=== PATIENT | male | born 1940 | race Caucasian/White ===

== ENCOUNTER 2017-10-18 09:10 | Observation (INO) ==
[2017-10-18 09:37] LABS: Basophils % 0.2 %; Eosinophils # 0.1 K/mcL (0.0-0.6); Eosinophils % 0.9 %; Hematocrit 34.6 % (37.5-50.1); Hemoglobin 10.8 g/dL (12.9-16.9); Immature Granulocytes % 0.4 % (0-4); Mean Corpuscular HGB Conc 31.2 g/dL (31.6-35.5); Mean Corpuscular Hemoglobin 23.4 pg (28.0-33.3); Mean Corpuscular Volume 75.1 fL (83.0-100.0); Mean Platelet Volume 8.4 fL (9.4-12.4); Monocytes # 0.8 K/mcL (0.0-1.3); Monocytes % 6.4 %; Neutrophils # 10.1 K/mcL (1.6-8.9); Platelet Count 299 K/mcL (140-400); Red Blood Count 4.61 M/mcL (4.19-5.50); Red Cell Distribution Width 16.9 % (11.5-14.5); Segmented Neutrophils % 84.1 %
[2017-10-18 09:42] LABS: Prothrombin Time 11.8 Seconds (9.4-12.1)
[2017-10-18 09:57] LABS: % Iron Saturation 5 % (20-55); Alanine Aminotransferase 14 Units/L (7-52); Albumin 3.4 g/dL (3.5-5.7); Alkaline Phosphatase 98 Units/L (34-104); Aspartate Amino Transferase 13 Units/L (13-39); BUN/Creatinine Ratio 13 (6-26); Bilirubin,Total 0.4 mg/dL (0.3-1.0); Blood Urea Nitrogen 16 mg/dL (8-23); Calcium 9.3 mg/dL (8.6-10.3); Carbon Dioxide 25 mEq/L (23-29); Chloride 97 mEq/L (98-107); Globulin 3.4 g/dL (2.4-3.5); Glucose 113 mg/dL (70-105); Iron 12 mcg/dL (65-175); Osmolality,Calculated 276 (280-300); Potassium 4.2 mEq/L (3.5-5.1); Sodium 132 mEq/L (136-145); Total Protein 6.8 g/dL (6.4-8.9); Transferrin 174 mg/dL (203-362); eGFR For Non-African Americans 58 (> 60)
[2017-10-18 10:14] LABS: Ferritin 102 ng/mL (20-250)
[2017-10-18 10:19] LABS: Folate 12.1 ng/mL (3.0-16.0)
[2017-10-18] MEDS ORDERED: *HR* FentaNYL (PF) 100 MCG/2 ML VIAL IVP ONE (10:31)
[2017-10-18] MEDS ORDERED: *HR* Midazolam HCl 2 MG/2 ML VIAL IVP ONE (10:31)
[2017-10-18] MEDS ORDERED: cefOXitin 1,000 MG in Water for inj. (sterile) 20 ML 10 ML IVP ONE (10:32)
--- NOTE | 2017-10-18 10:33 | History & Physical Report ---
Date of Encounter: 10/18/17 Time of Encounter: 10:33 24 Hour HP Update - Instructions Instructions: If the History and Physical is less than 30 days old and was completed prior to A.M. admission and or procedure and has NOT been updated on calendar day of procedure please complete this update prior to performing procedure. - Update Patient reports changes in Medical Condition: No Changes in examination, assessment, or condition: No Changes in Medication: No Preop tests/diagnostics Reviewed: Yes Surgery Remains Indicated: Yes Consent for Planned Operative Procedure(s) Verified: Yes - Pre-Operative Checklist Preoperative Checklist Indicated: Yes Prophylactic Antibiotic Ordered: Yes Home Medications Include Beta Austen: No Beta Austen Taken Today (Day of Surgery): No Beta Austen Taken Yesterday (Day Prior to Surgery): No Is VTE Prophylaxis Indicated?: NO
[2017-10-18] MEDS ORDERED: 0.9 % Sodium Chloride 500 ML ONE ×2 (10:40→11:03)
[2017-10-18] MEDS ORDERED: Ondansetron 4 MG/2 ML VIAL IVP ONE (10:54)
--- NOTE | 2017-10-18 11:45 | Pre-Sedation Evaluation ---
Pre-sedation evaluation - Pre-sedation checklist Date of procedure: 10/18/17 Procedure: G-Tube Recent Vitals: Last Vital Signs Temp 97.9 F 10/18/17 10:14 Pulse 66 10/18/17 11:39 Resp 17 10/18/17 11:39 BP 149/64 10/18/17 11:39 Pulse Ox 100 10/18/17 11:39 H&P (including ROS) documented in medical record: Yes Previous reaction to sedatives/anesthetics: No Dietary Status: NPO after Midnight Airway Assessment: Patient can open mouth completely, TMJ function normal Dentition: No loose teeth or bridges Possible difficult airway: No ASA Classification *see protocol: CLASS II-Mild systemic disease Plan of Care: Pt appropriate candidate for procedure/moderate/conscious sedation , Risks/benefits of procedure/sedation discussed w/ patient/family Cardiac Registry (Cardio Only) - Functional Capacity - Clincal Frailty Scale
--- NOTE | 2017-10-18 11:47 | IR Procedure Note ---
Date of procedure: 10/18/17 Consent Obtained: Verbal consent, Written consent Timeout: Correct patient and procedure verified, Correct site verified, Time out performed, Skin prep completed Local anesthetic: Lidocaine 1% Indications: Head and neck cancer Procedure Performed: Gastrostomy tube placement Was there an parking assistant present: No Site/Technique: Percutaneous gastrostomy tube placement Results/Findings: 18 Fr G- Tube placed Estimated blood loss (cc): 2 Complications: other (Back wall of stomach was punctured. This was recognized immediately and the tube was repositioned. Plan for patient to be admitted for oberservation and abx. NPO now.) Post Procedure Treatment Plan: Admitted for observation. NPO Specimen: None
[2017-10-18] MEDS ORDERED: Piperacillin/Tazobactam 3.375 GM in 0.9 % Sodium Chloride Mini Bag 100 ML IVPB ONE (11:50)
--- NOTE | 2017-10-18 13:42 | Internal Med History&Physical ---
Date of Encounter: 10/18/17 Time of Encounter: 13:40 Internal Medicine - H&P: HPI Chief complaint: s/p peg placement with puncture of posterior abdomen Admitted From: Home Plans for Post Hospital Care: Home History of present illness: Mr. 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 curretly he reports no complaints other than pain at the incision site. denies fever, chills, chest pain, palpitations, sob, N/v/D. 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 during placement "(Back wall of stomach was punctured. This was recognized immediately and the tube was repositioned." he was transferred to [facility] for observation and IV ABx. Past Med Surg Social Fam HX - Past Medical History Medical history: arthritis, hyperlipidemia Additional medical history: kidney disease, ED, hyperkalemia, gastritis, CAD, Psychiatric history: no psych history - Past Surgical History Surgical History: coronary bypass (CABG) - Social History Smoking Status: Current every day smoker Smokeless Tobacco Status: No Alcohol use: none Drug use: none Internal Medicine - H&P: Meds Alendronate Sodium [Fosamax] 35 mg PO QWEEK 09/12/17 [History] DiphenhydraMINE [Benadryl] 25 mg PO DAILY PRN 09/12/17 [History] FLUoxetine HCl [Fluoxetine HCl] 40 mg PO DAILY 09/12/17 [History] traZODone [TraZODone] 50 mg PO HS 09/12/17 [History] Aspirin [Ecotrin] 0.5 tab PO DAILY 10/04/17 [History] Atorvastatin [Lipitor] 40 mg PO DAILY 10/04/17 [History] Omeprazole [PriLOSEC] 40 mg PO DAILY 10/04/17 [History] Oxycodone HCl 5 tab PO Q4H PRN 10/04/17 [History] Morphine Sulfate [Arymo ER] 15 mg PO Q12H 10/11/17 [History] Polyethylene Glycol 3350 [MiraLAX] 17 gm PO DAILY 10/11/17 [History] Oxycodone HCl 10 mg PO Q4H PRN 10/18/17 [History] 3 Allergy/AdvReac Type Severity Reaction Status Date / Time No Known Allergies Allergy Verified 11/03/14 10:43 All Systems PM: A 10-system review of systems was performed and is negative for pertinent findings except as documented above in the HPI. - Constitutional Vitals: Temp Pulse Resp BP Pulse Ox 97.9 F 66 17 149/64 100 10/18/17 10:14 10/18/17 11:39 10/18/17 11:39 10/18/17 11:39 10/18/17 11:39 - Other Additional findings: General: Patient is alert, oriented, no acute distress, cachectic Head: atraumatic, normocephalic, Eye: normal appearance, PERRL, no scleral icterus, no conjunctival injection ENT: Dry mucus membranes, poor dentition, unable to evaluate the oral cavity patietn has difficulty opening his jaw due to carcinoma. Neck: normal inspection, trachea midline, full ROM, no carotid bruits Chest: normal inspection, symmetric chest rise Respiratory: Good respiratory effort. Bilateral breath sounds are clear without wheezing, crackles, or rhonchi. Cardiovascular: Regular rate and rhythm. No clicks, rubs, gallops, or murmors. Normal heart sounds. Abdomen: Bowel sounds present normoactive x-4 quadrants. Abdomen is soft, nondistended. none tender, Peg tube site has clean bandage without evidence of bleeding Musculoskeletal: Spontaneously moving all extremities. Skin: warm, dry, intact. Neuro: Alert and oriented x4. Sensation light touch intact. Cranial nerves II- 12 is intact. Not aphasic Psych: Patient's affect is normal Internal Med - H&P Results - Labs CBC & Chem 7: 10/18/17 09:20 10/18/17 09:19 Labs: Short CBC 10/18/17 Range/Units 09:20 WBC 12.0 H (4.3-11.1) K/mcL Hgb 10.8 L (12.9-16.9) g/dL Hct 34.6 L (37.5-50.1) % Plt Count 299 (140-400) K/mcL Neutrophils # 10.1 H (1.6-8.9) K/mcL BMP 10/18/17 09:19 Sodium 132 L Potassium 4.2 Chloride 97 L Carbon Dioxide 25 BUN 16 Creatinine 1.22 Glucose 113 H Calcium 9.3 Liver Function 10/18/17 Range/Units 09:19 Total Bilirubin 0.4 (0.3-1.0) mg/dL AST 13 (13-39) Units/L ALT 14 (7-52) Units/L Alkaline Phosphatase 98 (34-104) Units/L Albumin 3.4 L (3.5-5.7) g/dL - Assessment and plan (1) Status post insertion of percutaneous endoscopic gastrostomy (PEG) tube Current Visit: Yes Status: Acute Assessment and plan: s/p punctured of the posterior wall of stomach zosyn CBC, CMP in the AM blood cx, Lactic acid- if SIRS / fever >100.4 vitals as per protocol will consult IR - they are onboard serial abdominal exam if signs of peritonitis call surgery NPO will start him on IV hydration cardiac monitoring / pulse ox (2) Oropharyngeal dysphagia Current Visit: Yes Status: Acute Assessment and plan: keep Total NPO for now Nothing by PEG tube - until cleared by IR will continue IVF (3) Iron deficiency anemia Current Visit: Yes Status: Acute Assessment and plan: on oral iron will hold for now follow H/h type and screen consider IV iron Qualifiers: Iron deficiency anemia type: unspecified iron deficiency Qualified Code(s) : D50.9 - Iron deficiency anemia, unspecified (4) CKD (chronic kidney disease) stage 3, GFR 30-59 ml/min Current Visit: Yes Status: Acute Assessment and plan: stable will monitor BMP and electrolytes continue IVF (5) Cancer of soft palate Current Visit: No Status: Acute Assessment and plan: Stage II (cT3N0/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 following with oncologist Dr. Ponce on 15 mg of PO morphine BID at home along with oxycodone 10 mg Q4H will start him on IVP morphine 2 mg Q4H and 2 mg Q6H PRN for break through pain - with holding parameters contineous pulse ox (6) Cachectic Current Visit: Yes Status: Acute Assessment and plan: BMI 17.6 consider nutrition consult when not NPO (7) Current every day smoker Current Visit: Yes Status: Acute Assessment and plan: was counseled (8) DVT prophylaxis Current Visit: Yes Status: Acute Assessment and plan: heparin 5000 units Q8H SC - Time Spent With Patient Total time spent is greater than 50% in coordination of care (as documented) at patient's floor/unit and/or counseling patient:
[2017-10-18] MEDS: 0.9 % Sodium Chloride 1,000 ML IVC SCH ×2 (14:36→23:55)
[2017-10-18] MEDS: Piperacillin/Tazobactam 3.375 GM in 0.9 % Sodium Chloride Mini Bag 100 ML IVPB SCH ×2 (14:36→23:56)
[2017-10-18] MEDS: *HR* Heparin 5,000 UNIT/ML VIAL SQ SCH ×2 (14:37→23:00)
[2017-10-18] MEDS: *HR* Morphine 2 MG/ML SYRINGE IVP SCH ×4 (14:41→23:57)
--- NOTE | 2017-10-18 15:46 | IR Progress Note ---
Patient reports: no new complaints Date of IR Procedure: 10/18/17 Vital Signs: Vital Signs/O2 Sat, Most Current Temp Pulse Resp BP Pulse Ox 97.1 F L 54 16 159/69 92 10/18/17 13:43 10/18/17 13:43 10/18/17 13:43 10/18/17 13:43 10/18/17 13:43 Recent Labs: Lab Results 10/18/17 10/18/17 09:20 09:19 WBC 12.0 H RBC 4.61 Hgb 10.8 L Hct 34.6 L MCV 75.1 L MCH 23.4 L MCHC 31.2 L RDW 16.9 H Plt Count 299 MPV 8.4 L Neutrophils # 10.1 H Lymphocytes # 1.0 Monocytes # 0.8 Eosinophils # 0.1 Basophils # 0.0 Sodium 132 L Potassium 4.2 Chloride 97 L Carbon Dioxide 25 BUN 16 Creatinine 1.22 Est GFR ( Amer) > 60 Est GFR (Non-Af Amer) 58 L BUN/Creatinine Ratio 13 Glucose 113 H Calcium 9.3 Assessment and Plan 77 y/o male status post gastrostomy tube placement. Back wall of stomach punctured during procedure. However, G-Tube ended up appropriately positioned and will be ammenable to use. Patient admitted for observation due to incidental gastric puncture. 1. Patient doing well. Resting comfortably. Mild pain at insertion site, but otherwise appears well. Plan for NPO for 24 hrs, and then may have medications with ice chips for another 24 hrs. Plan for admission during this time. Tentative plan to see patient Saturday am with expectation of discharge that day. Discussed with the patient and his family who are agreeable with this plan. Bryn Ace MD
[2017-10-18] MEDS ORDERED: *HR* Morphine 2 MG/ML SYRINGE IVP PRN (15:55)
[2017-10-19 01:54] LABS: Basophils % 0.1 %; Eosinophils % 0.3 %; Hematocrit 30.3 % (37.5-50.1); Hemoglobin 9.4 g/dL (12.9-16.9); Immature Granulocytes % 0.3 % (0-4); Lymphocytes # 0.9 K/mcL (0.6-4.6); Lymphocytes % 8.5 %; Mean Corpuscular Hemoglobin 23.6 pg (28.0-33.3); Mean Corpuscular Volume 75.9 fL (83.0-100.0); Mean Platelet Volume 8.8 fL (9.4-12.4); Monocytes # 0.4 K/mcL (0.0-1.3); Neutrophils # 8.7 K/mcL (1.6-8.9); Platelet Count 259 K/mcL (140-400); Red Blood Count 3.99 M/mcL (4.19-5.50); Red Cell Distribution Width 16.7 % (11.5-14.5); Segmented Neutrophils % 86.8 %
[2017-10-19 02:19] LABS: BUN/Creatinine Ratio 14 (6-26); Blood Urea Nitrogen 16 mg/dL (8-23); Calcium 8.5 mg/dL (8.6-10.3); Carbon Dioxide 24 mEq/L (23-29); Chloride 100 mEq/L (98-107); Glucose 79 mg/dL (70-105); Osmolality,Calculated 278 (280-300); Potassium 4.8 mEq/L (3.5-5.1); Sodium 134 mEq/L (136-145); eGFR For Non-African Americans > 60 (> 60)
[2017-10-19] MEDS: *HR* Morphine 2 MG/ML SYRINGE IVP SCH ×6 (04:06→23:54)
[2017-10-19] MEDS: *HR* Heparin 5,000 UNIT/ML VIAL SQ SCH ×3 (06:37→20:02)
[2017-10-19] MEDS: Piperacillin/Tazobactam 3.375 GM in 0.9 % Sodium Chloride Mini Bag 100 ML IVPB SCH ×3 (08:11→23:53)
--- NOTE | 2017-10-19 13:10 | Internal Med Progress Note ---
Date of Encounter: 10/19/17 Time of Encounter: 13:07 - Assessment and plan (1) Status post insertion of percutaneous endoscopic gastrostomy (PEG) tube Current Visit: Yes Status: Acute Assessment and plan: s/p punctured of the posterior wall of stomach during PEG tube placement -No peritoneal signs; however will monitor -We will start ice chips with medications for 24 hours until 1300 on 10/20 -Continue Zosyn -Check CBC in a.m. 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 following with oncologist Dr. Ponce on 15 mg of PO morphine BID at home along with oxycodone 10 mg Q4H Continue IVP morphine 2 mg Q4H and 2 mg Q6H PRN for break through pain - with holding parameters contineous pulse ox (3) Oropharyngeal dysphagia Current Visit: Yes Status: Acute Assessment and plan: Patient can have ice chips with medications only Nothing by PEG tube - until cleared by IR Resume IV fluids D5 normal saline (4) Cachectic Current Visit: Yes Status: Acute Assessment and plan: BMI 17.6 Nutrition seen patient (5) Iron deficiency anemia Current Visit: Yes Status: Acute Assessment and plan: -oral iron will hold for now -follow H/h -type and screen -Stable Qualifiers: Iron deficiency anemia type: unspecified iron deficiency Qualified Code(s) : D50.9 - Iron deficiency anemia, unspecified (6) CKD (chronic kidney disease) stage 3, GFR 30-59 ml/min Current Visit: Yes Status: Acute Assessment and plan: stable will monitor BMP and electrolytes continue IVF Serum creatinine 1.13 today (7) DVT prophylaxis Current Visit: Yes Status: Acute Assessment and plan: heparin 5000 units Q8H SC (8) Current every day smoker Current Visit: Yes Status: Acute Assessment and plan: was counseled (9) Moderate protein-calorie malnutrition Current Visit: Yes Status: Acute Assessment and plan: Patient with a BMI of 17.6 and cachexia - Time Spent With Patient Total time spent is greater than 50% in coordination of care (as documented) at patient's floor/unit and/or counseling patient: 25 - 35 minutes - Subjective Interval history: Patient seen and examined at bedside. Patient had no overnight events. Patient has no complaints other than being thirsty. She denies any chest pain, shortness of breath, nausea, vomiting, diarrhea. Patient states he has some tenderness at the G-tube insertion site however otherwise has no abdominal pain. He has been afebrile. - Constitutional Vitals: Temp Pulse Resp BP Pulse Ox 98.1 F 58 16 150/72 97 10/19/17 11:21 10/19/17 11:21 10/19/17 11:21 10/19/17 11:21 10/19/17 11:21 Exam: Constitutional: No acute distress, Alert Psych: AAO x 3 HEENT: NCAT, EOMI Cardio: regular rate and rhythm, +s1s2, no murmurs/rubs/ronchi, Resp: clear to ascultation bilaterally, no wheezes/rales/ronchi Abd: soft, non tender/non distended, positive bowel sounds, no gaurding/reboud/ ridgitity; PEG tube in place with clean dressing over tube; no peritoneal signs on exam Extremities: no clubbing/cyanosis/edema appreciated Neuro: Patient with speech difficulties secondary to throat cancer Lymph: no cervical/supraclavicular adenopahty apprecitated Internal Medicine: Result - Labs CBC & Chem 7: 10/19/17 01:18 10/19/17 01:18 Labs: Short CBC 10/19/17 Range/Units 01:18 WBC 10.0 (4.3-11.1) K/mcL Hgb 9.4 L (12.9-16.9) g/dL Hct 30.3 L (37.5-50.1) % Plt Count 259 (140-400) K/mcL Neutrophils # 8.7 (1.6-8.9) K/mcL BMP 10/19/17 01:18 Sodium 134 L Potassium 4.8 Chloride 100 Carbon Dioxide 24 BUN 16 Creatinine 1.13 Glucose 79 Calcium 8.5 L - ABG Interpretation ABG results: PT/INR, D-dimer PT 11.8 Seconds (9.4-12.1) 10/18/17 09:21 - VTE Documentation of Mechanical Device: Intermittent pneumatic compression device Consult Discharge Plan - Plan Referrals: [facility] [Outside]
[2017-10-19] MEDS: D5% in 0.9% NACL 1,000 ML IVC SCH (13:41)
[2017-10-20] MEDS: D5% in 0.9% NACL 1,000 ML IVC SCH ×2 (02:35→14:39)
[2017-10-20] MEDS: *HR* Morphine 2 MG/ML SYRINGE IVP SCH ×7 (04:28→21:46)
[2017-10-20] MEDS: *HR* Heparin 5,000 UNIT/ML VIAL SQ SCH ×2 (05:59→13:04)
[2017-10-20 06:55] LABS: Basophils % 0.1 %; Eosinophils # 0.1 K/mcL (0.0-0.6); Eosinophils % 0.9 %; Hematocrit 30.3 % (37.5-50.1); Hemoglobin 9.5 g/dL (12.9-16.9); Immature Granulocytes % 0.3 % (0-4); Lymphocytes # 0.6 K/mcL (0.6-4.6); Lymphocytes % 6.3 %; Mean Corpuscular HGB Conc 31.4 g/dL (31.6-35.5); Mean Corpuscular Hemoglobin 23.8 pg (28.0-33.3); Mean Corpuscular Volume 75.8 fL (83.0-100.0); Mean Platelet Volume 8.7 fL (9.4-12.4); Monocytes # 0.6 K/mcL (0.0-1.3); Monocytes % 5.7 %; Neutrophils # 8.6 K/mcL (1.6-8.9); Platelet Count 289 K/mcL (140-400); Red Cell Distribution Width 16.9 % (11.5-14.5); Segmented Neutrophils % 86.7 %
[2017-10-20] MEDS: Piperacillin/Tazobactam 3.375 GM in 0.9 % Sodium Chloride Mini Bag 100 ML IVPB SCH ×2 (08:10→16:47)
--- NOTE | 2017-10-20 12:54 | Internal Med Progress Note ---
Date of Encounter: 10/20/17 Time of Encounter: 12:52 - Assessment and plan (1) Status post insertion of percutaneous endoscopic gastrostomy (PEG) tube Current Visit: Yes Status: Acute Assessment and plan: s/p punctured of the posterior wall of stomach during PEG tube placement -No peritoneal signs; however will monitor -Patient was nothing by mouth for 24 hours and has only had a ships with medications for the last 24 hours and tolerating well -We will start clear liquids -Continue Zosyn -Check CBC in a.m. 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 following with oncologist Dr. Ponce on 15 mg of PO morphine BID at home along with oxycodone 10 mg Q4H Continue IVP morphine 2 mg Q4H and 2 mg Q6H PRN for break through pain - with holding parameters contineous pulse ox (3) Oropharyngeal dysphagia Current Visit: Yes Status: Acute Assessment and plan: We will start clear liquids today Nothing by PEG tube - until cleared by IR Continue IV fluids D5 normal saline (4) Cachectic Current Visit: Yes Status: Acute (5) Iron deficiency anemia Current Visit: Yes Status: Acute Assessment and plan: -oral iron will hold for now -follow H/h -type and screen -Hemoglobin stable hemoglobin 9.5 today Qualifiers: Iron deficiency anemia type: unspecified iron deficiency Qualified Code(s) : D50.9 - Iron deficiency anemia, unspecified (6) CKD (chronic kidney disease) stage 3, GFR 30-59 ml/min Current Visit: Yes Status: Acute Assessment and plan: stable On D5 normal saline 75 mL per hour We will check BMP in a.m. (7) DVT prophylaxis Current Visit: Yes Status: Acute Assessment and plan: heparin 5000 units Q8H SC (8) Current every day smoker Current Visit: Yes Status: Acute (9) Moderate protein-calorie malnutrition Current Visit: Yes Status: Acute Assessment and plan: Patient with a BMI of 17.6 and cachexia - Time Spent With Patient Total time spent is greater than 50% in coordination of care (as documented) at patient's floor/unit and/or counseling patient: less than 15 minutes - Subjective Interval history: Patient seen and examined at bedside. Patient had no overnight events. Patient states he is doing well. Patient is tolerating ice chips with medications. She denies any abdominal pain at all and states that the PEG tube insertion site no longer hurts much. Patient has been afebrile. - Constitutional Vitals: Temp Pulse Resp BP Pulse Ox 97.6 F 20 16 164/70 100 10/20/17 11:05 10/20/17 11:05 10/20/17 11:05 10/20/17 11:05 10/20/17 11:05 Exam: Constitutional: No acute distress, Alert Psych: AAO x 3 HEENT: NCAT, EOMI Cardio: regular rate and rhythm, +s1s2 Resp: Occasional expiratory wheeze, no distress Abd: soft, non tender/non distended, positive bowel sounds, no gaurding/reboud/ ridgitity; PEG tube in place with clean dressing over tube; no peritoneal signs on exam Extremities: no clubbing/cyanosis/edema appreciated Neuro: Patient with speech difficulties secondary to throat cancer Internal Medicine: Result - Labs CBC & Chem 7: 10/20/17 05:49 10/19/17 01:18 Labs: Short CBC 10/20/17 Range/Units 05:49 WBC 9.9 (4.3-11.1) K/mcL Hgb 9.5 L (12.9-16.9) g/dL Hct 30.3 L (37.5-50.1) % Plt Count 289 (140-400) K/mcL Neutrophils # 8.6 (1.6-8.9) K/mcL - ABG Interpretation ABG results: PT/INR, D-dimer PT 11.8 Seconds (9.4-12.1) 10/18/17 09:21 - VTE Documentation of Mechanical Device: Intermittent pneumatic compression device Consult Discharge Plan - Plan Referrals: [facility] [Outside]
[2017-10-21] MEDS: *HR* Morphine 2 MG/ML SYRINGE IVP SCH ×4 (00:01→10:55)
[2017-10-21] MEDS: *HR* Heparin 5,000 UNIT/ML VIAL SQ SCH ×3 (00:01→15:22)
[2017-10-21 01:46] LABS: Basophils % 0.1 %; Eosinophils # 0.1 K/mcL (0.0-0.6); Eosinophils % 1.4 %; Hematocrit 31.7 % (37.5-50.1); Hemoglobin 9.6 g/dL (12.9-16.9); Immature Granulocytes % 0.7 % (0-4); Lymphocytes % 11.1 %; Mean Corpuscular HGB Conc 30.3 g/dL (31.6-35.5); Mean Platelet Volume 8.6 fL (9.4-12.4); Monocytes # 0.6 K/mcL (0.0-1.3); Monocytes % 6.5 %; Neutrophils # 7.2 K/mcL (1.6-8.9); Platelet Count 271 K/mcL (140-400); Red Blood Count 4.17 M/mcL (4.19-5.50); Segmented Neutrophils % 80.2 %
[2017-10-21 02:04] LABS: BUN/Creatinine Ratio 13 (6-26); Blood Urea Nitrogen 12 mg/dL (8-23); Calcium 8.9 mg/dL (8.6-10.3); Carbon Dioxide 26 mEq/L (23-29); Chloride 103 mEq/L (98-107); Glucose 120 mg/dL (70-105); Osmolality,Calculated 283 (280-300); Sodium 136 mEq/L (136-145); eGFR For Non-African Americans > 60 (> 60)
[2017-10-21] MEDS: D5% in 0.9% NACL 1,000 ML IVC SCH (03:50)
--- NOTE | 2017-10-21 08:38 | IR Progress Note ---
Patient reports: no new complaints Date of IR Procedure: 10/18/17 Vital Signs: Vital Signs/O2 Sat, Most Current Temp Pulse Resp BP Pulse Ox 98.4 F 51 16 180/76 100 10/21/17 07:07 10/21/17 07:07 10/21/17 07:07 10/21/17 07:07 10/21/17 07:07 Recent Labs: Lab Results 10/21/17 10/21/17 10/20/17 00:55 00:55 05:49 WBC 9.0 9.9 RBC 4.17 L 4.00 L Hgb 9.6 L 9.5 L Hct 31.7 L 30.3 L MCV 76.0 L 75.8 L MCH 23.0 L 23.8 L MCHC 30.3 L 31.4 L RDW 17.0 H 16.9 H Plt Count 271 289 MPV 8.6 L 8.7 L Neutrophils # 7.2 8.6 Lymphocytes # 1.0 0.6 Monocytes # 0.6 0.6 Eosinophils # 0.1 0.1 Basophils # 0.0 0.0 Sodium 136 Potassium 4.0 Chloride 103 Carbon Dioxide 26 BUN 12 Creatinine 0.94 Est GFR ( Amer) > 60 Est GFR (Non-Af Amer) > 60 BUN/Creatinine Ratio 13 Glucose 120 H Calcium 8.9 10/19/17 10/19/17 10/18/17 01:18 01:18 09:20 WBC 10.0 12.0 H RBC 3.99 L 4.61 Hgb 9.4 L 10.8 L Hct 30.3 L 34.6 L MCV 75.9 L 75.1 L MCH 23.6 L 23.4 L MCHC 31.0 L 31.2 L RDW 16.7 H 16.9 H Plt Count 259 299 MPV 8.8 L 8.4 L Neutrophils # 8.7 10.1 H Lymphocytes # 0.9 1.0 Monocytes # 0.4 0.8 Eosinophils # 0.0 0.1 Basophils # 0.0 0.0 Sodium 134 L Potassium 4.8 Chloride 100 Carbon Dioxide 24 BUN 16 Creatinine 1.13 Est GFR ( Amer) > 60 Est GFR (Non-Af Amer) > 60 BUN/Creatinine Ratio 14 Glucose 79 Calcium 8.5 L 10/18/17 09:19 WBC RBC Hgb Hct MCV MCH MCHC RDW Plt Count MPV Neutrophils # Lymphocytes # Monocytes # Eosinophils # Basophils # Sodium 132 L Potassium 4.2 Chloride 97 L Carbon Dioxide 25 BUN 16 Creatinine 1.22 Est GFR ( Amer) > 60 Est GFR (Non-Af Amer) 58 L BUN/Creatinine Ratio 13 Glucose 113 H Calcium 9.3 Assessment and Plan 77 y/o male status post gastrostomy tube placement due to head and neck cancer. Patient tolerated the procedure well, although the posterior wall of the stomach was punctured during the procedure. Therefore, the patient was admitted over the weekend for monitoring and abx. 1. Doing well. No complaints related to the gastrostomy tube. Denies abdominal pain. Will inject the G-tube this am with contrast. If no leak, will advance his diet and plan for discharge today.
[2017-10-21] MEDS: Piperacillin/Tazobactam 3.375 GM in 0.9 % Sodium Chloride Mini Bag 100 ML IVPB SCH ×2 (10:53)
[2017-10-21] MEDS ORDERED: *HR* OxyCODONE Immed Rel 5 MG TABLET PO PRN ×2 (13:23→14:02)
--- NOTE | 2017-10-21 14:31 | Discharge Summary ---
Date of Encounter: 10/21/17 Time of Encounter: 14:27 - Discharge Diagnosis (1) Status post insertion of percutaneous endoscopic gastrostomy (PEG) tube Priority: Primary Status: Acute Assessment and Plan: s/p punctured of the posterior wall of stomach during PEG tube placement -No peritoneal signs -Patient tolerated clear liquid diet -dc Zosyn -no leak on imaging -dc home if tolerating regular diet. (2) Cancer of soft palate Priority: Secondary Status: Acute (3) Oropharyngeal dysphagia Priority: Secondary Status: Acute (4) Cachectic Priority: Secondary Status: Acute (5) Iron deficiency anemia Priority: Secondary Status: Acute Qualifiers: Iron deficiency anemia type: unspecified iron deficiency Qualified Code(s) : D50.9 - Iron deficiency anemia, unspecified (6) CKD (chronic kidney disease) stage 3, GFR 30-59 ml/min Priority: Secondary Status: Acute (7) DVT prophylaxis Priority: Secondary Status: Acute (8) Current every day smoker Priority: Secondary Status: Acute (9) Moderate protein-calorie malnutrition Priority: Secondary Status: Acute Hospital course: Mr. Hardy is a 77 year old male who presented to interventional radiology for PEG tube placement secondary to dysphagia from throat cancer. Patient underwent PEG tube placement and had posterior wall puncture. Patient is on IV antibiotics and admitted to observation. Slowly advance the patient's diet over 2 days after being nothing by mouth for 24 hours and the patient is tolerating it well. I saw the patient and followed. Patient underwent fluoroscopy. The discharge and showed no leaks; this was followed up with a KUB which also revealed no leaks. Vision will be discharged home with instructions to return to the ED should he experience abdominal pain or not tolerating his normal diet. Patient will not be discharged on tube feeds and will hold for 1 week per Interventional radiology. Discharge discussed with: patient, nurse - Time Spent with Patient Total time spent providing and/or coordinating discharge services: Greater than 30 minutes - Discharge Medications Home Medications: Alendronate Sodium [Fosamax] 35 mg PO QWEEK 09/12/17 [History] DiphenhydraMINE [Benadryl] 25 mg PO DAILY PRN 09/12/17 [History] FLUoxetine HCl [Fluoxetine HCl] 40 mg PO DAILY 09/12/17 [History] traZODone [TraZODone] 50 mg PO HS 09/12/17 [History] Omeprazole [PriLOSEC] 40 mg PO DAILY 10/04/17 [History] Oxycodone HCl 5 tab PO Q4H PRN 10/04/17 [History] Morphine Sulfate [Arymo ER] 15 mg PO Q12H 10/11/17 [History] Polyethylene Glycol 3350 [MiraLAX] 17 gm PO DAILY 10/11/17 [History] Oxycodone HCl 10 mg PO Q4H PRN 10/18/17 [History] Allergies/Adverse Reactions: 3 Allergy/AdvReac Type Severity Reaction Status Date / Time No Known Allergies Allergy Verified 11/03/14 10:43 Date of admission: 10/18/17 13:47 [facility] care physician[facility] Consults: 10/18/17 14:00 Consult to Nutrition [CONS] Routine Comment: Throat cancer, COPD, recent loss of spouse Consulting Provider: NUTRITION Reason for Dietary Consult: MST Score Consult to Pastoral Services [CONS] Routine Comment: 10/18/17 15:42 Consult to Interventional Radiology [CONS] Routine Consulting Provider: Radiology Interventional Cols Reason for Consult: s/p PEG placement as OP with Puntured posterior abdominal wall, was referred from OP IR procedures By dr. morton who knows about the patient Call Completed: Yes - Constitutional Vitals: Temp Pulse Resp BP Pulse Ox 97.5 F L 46 14 178/72 98 10/21/17 11:00 10/21/17 11:00 10/21/17 11:00 10/21/17 11:00 10/21/17 11:00 Exam: Constitutional: No acute distress, Alert Psych: AAO x 3 HEENT: NCAT, EOMI Cardio: regular rate and rhythm, +s1s2 Resp: Occasional expiratory wheeze, no distress Abd: soft, non tender/non distended, positive bowel sounds, no gaurding/reboud/ ridgitity; PEG tube in place with clean dressing over tube; no peritoneal signs on exam; very benign exam Extremities: no clubbing/cyanosis/edema appreciated Neuro: Patient with speech difficulties secondary to throat cancer - Patient Status Disposition: Home, Self-Care Condition: Good Functional capacity at discharge: independent ambulation Overall status at discharge: patient is back to baseline - Discharge Instructions Follow Up With: [facility] [Outside] - Diet and Activity Activity: increase activity as tolerated Diet: advance to your usual diet, other (Advance her diet over the week as tolerated; do not start tube feeds for 1 week. ) - VTE Documentation of Mechanical Device: Intermittent pneumatic compression device
--- NOTE | 2017-10-21 14:43 | IR Progress Note ---
Patient reports: no new complaints Date of IR Procedure: 10/18/17 Vital Signs: Vital Signs/O2 Sat, Most Current Temp Pulse Resp BP Pulse Ox 97.5 F L 46 14 178/72 98 10/21/17 11:00 10/21/17 11:00 10/21/17 11:00 10/21/17 11:00 10/21/17 11:00 Recent Labs: Lab Results 10/21/17 10/21/17 10/20/17 00:55 00:55 05:49 WBC 9.0 9.9 RBC 4.17 L 4.00 L Hgb 9.6 L 9.5 L Hct 31.7 L 30.3 L MCV 76.0 L 75.8 L MCH 23.0 L 23.8 L MCHC 30.3 L 31.4 L RDW 17.0 H 16.9 H Plt Count 271 289 MPV 8.6 L 8.7 L Neutrophils # 7.2 8.6 Lymphocytes # 1.0 0.6 Monocytes # 0.6 0.6 Eosinophils # 0.1 0.1 Basophils # 0.0 0.0 Sodium 136 Potassium 4.0 Chloride 103 Carbon Dioxide 26 BUN 12 Creatinine 0.94 Est GFR ( Amer) > 60 Est GFR (Non-Af Amer) > 60 BUN/Creatinine Ratio 13 Glucose 120 H Calcium 8.9 10/19/17 10/19/17 01:18 01:18 WBC 10.0 RBC 3.99 L Hgb 9.4 L Hct 30.3 L MCV 75.9 L MCH 23.6 L MCHC 31.0 L RDW 16.7 H Plt Count 259 MPV 8.8 L Neutrophils # 8.7 Lymphocytes # 0.9 Monocytes # 0.4 Eosinophils # 0.0 Basophils # 0.0 Sodium 134 L Potassium 4.8 Chloride 100 Carbon Dioxide 24 BUN 16 Creatinine 1.13 Est GFR ( Amer) > 60 Est GFR (Non-Af Amer) > 60 BUN/Creatinine Ratio 14 Glucose 79 Calcium 8.5 L Assessment and Plan Patient reports he feels well with no abdominal pain. Resting comfortably. 1. D/w with the patient and his daughter that he is ok to be discharged. No signs of peritonitis. Patient did well over the weekend and tolerated clears this morning. No evidence of a gastric leak clinically or with today's imaging studies. 2. Recommended to the patient's daughter holding off tube feeds this week so as not to overload the stomach with liquids. Advance his diet this week as tolerated. I encouraged them to go the ER if the patient appears to be getting sick or is not tolerating his normal diet. Bryn Ace MD
[2017-10-21 15:41] VITALS: BP 156/74
--- NOTE | 2017-10-21 16:54 | Physician Discharge Referral ---
Home Health/Hosp Referral Info Transfer to: Home Health Provider in Charge Post Discharge: PCP (Needs nursing) - Diagnosis (1) Status post insertion of percutaneous endoscopic gastrostomy (PEG) tube Status: Acute (2) Cancer of soft palate Status: Acute (3) Oropharyngeal dysphagia Status: Acute (4) Cachectic Status: Acute (5) Iron deficiency anemia Status: Acute (6) CKD (chronic kidney disease) stage 3, GFR 30-59 ml/min Status: Acute (7) DVT prophylaxis Status: Acute (8) Current every day smoker Status: Acute (9) Moderate protein-calorie malnutrition Status: Acute - Respiratory Orders Smoking Cessation: Smoking cessation has been advised. For more information, call the [place] Tobacco Quit Line at 5-881-WPILNOW. - Transfer Medications Home Medications: Alendronate Sodium [Fosamax] 35 mg PO QWEEK 09/12/17 [History] DiphenhydraMINE [Benadryl] 25 mg PO DAILY PRN 09/12/17 [History] FLUoxetine HCl [Fluoxetine HCl] 40 mg PO DAILY 09/12/17 [History] traZODone [TraZODone] 50 mg PO HS 09/12/17 [History] Omeprazole [PriLOSEC] 40 mg PO DAILY 10/04/17 [History] Oxycodone HCl 5 tab PO Q4H PRN 10/04/17 [History] Morphine Sulfate [Arymo ER] 15 mg PO Q12H 10/11/17 [History] Polyethylene Glycol 3350 [MiraLAX] 17 gm PO DAILY 10/11/17 [History] Oxycodone HCl 10 mg PO Q4H PRN 10/18/17 [History] Allergies/Adverse Reactions: 3 Allergy/AdvReac Type Severity Reaction Status Date / Time No Known Allergies Allergy Verified 11/03/14 10:43 Certification: Further, I certify that my clinical findings support that this patient is homebound (i.e. absences from home require considerable and taxing effort and are for medical reasons or church services or infrequently or short duration when for other reasons) because: Homebound Reason: Patient requires assistance of a person or device to safely leave home Attestation: My signature below is to certify that this patient is under my care and that I, or nurse practitioner, or a physician's child center assistant working with me, has a face-to -face encounter with this patient.
--- NOTE | 2017-10-21 17:49 | Electrocardiograph Report ---
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
--- NOTE | 2017-10-21 17:49 | Electrocardiograph Report ---
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
[2017-10-21] MEDS ORDERED: *HR* Morphine Sulfate SR (12 HR) 15 MG TABLET.ER PO SCH (21:00)
[2017-10-21] MEDS ORDERED: traZODone 50 MG TABLET PO SCH (21:00)
[2017-10-22] MEDS ORDERED: FLUoxetine 20 MG CAPSULE PO SCH (09:00)
== END 2017-10-21 18:44 | disposition home or self-care (01) ==
LOC: LAB 09:10 → 3ANU 09:10
PROVIDERS: ADMIT Internal Medicine; ATTEND Internal Medicine
PROC: IRDRAIN (2017-10-21 12:30)

== ENCOUNTER 2018-01-22 16:50 | Inpatient (IN) ==
[2018-01-22] MEDS ORDERED: Albuterol 2.5 MG/3 ML NEBULIZER IH PRN (20:06)
[2018-01-22] MEDS ORDERED: Naloxone 0.4 MG/ML INJ IVP PRN (20:06)
[2018-01-22] MEDS ORDERED: Acetaminophen 325 MG TABLET PO PRN (20:06)
[2018-01-22] MEDS ORDERED: traMADol 50 MG TABLET PO PRN (20:06)
[2018-01-22] MEDS ORDERED: Isovue-370 500 ML INFUS..BTL IV ONE (20:06)
[2018-01-22 20:53] LABS: INR 1.1; Prothrombin Time 12.5 Seconds (9.4-12.1)
[2018-01-22 20:56] LABS: Activated Partial Thrombo Time 27.1 Seconds (26.0-36.0)
--- NOTE | 2018-01-22 21:03 | Internal Med History&Physical ---
Date of Encounter: 01/22/18 Time of Encounter: 19:40 Internal Medicine - H&P: HPI Chief complaint: weakness; short of breath; weight loss Admitted From: Hospital to Hospital Transfer Plans for Post Hospital Care: Home History of present illness: Mr. Hardy is a 78 year old male who presents to the hospital today in transfer from [facility] ER for concerns of dyspnea, profound weakness, cough, and weight loss. He has been treated for head and neck cancer with localized radiation. His last treatment was on 11/27/2017. He has been unable to eat or drink much by mouth due to dysphagia, productive cough, and shortness of breath. He does have a feeding tube in place, which he uses for tube feeds. Despite the tube feeding, he is continuing to lose weight. Workup in [place] included imaging, routine labs, and an elevated d-dimer of over 5000. CT angiogram of the chest was not performed. Of note, patient denies any chest pain, pleurisy, palpitations, tachycardia, or syncope. I anticipate a d- dimer elevation is due to likely underlying COPD/possible pneumonia. However, given the marked elevation of d-dimer and his underlying malignancy, I am quite concerned about a pulmonary embolus. I am going to order a STAT CT angiogram of the chest to rule out PE. I discussed this with patient and 2 daughters present and they are agreeable. I also discussed CODE STATUS with patient directly and his 2 daughters who are both next of kin. 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 He does not wish to have prolonged intubation, resuscitation, or long-term heroic measures. However, in the event of an acute respiratory distress/failure or cardiac arrest, he does wish to be resuscitated and wishes to have short-term intubation. Therefore, he will remain FULL CODE for now. I discussed this in detail with patient and family, and they are all agreeable and request full code as above. Past Med Surg Social Fam HX - Past Medical History Attestation: Yes The following information was validated with the patient. Source: patient, old records reviewed, obtained from family Medical history: arthritis, hyperlipidemia Additional medical history: kidney disease, ED, hyperkalemia, gastritis, CAD, Psychiatric history: no psych history - Past Surgical History Surgical History: coronary bypass (CABG) - Social History Smoking Status: Current every day smoker Smokeless Tobacco Status: No Alcohol use: none Drug use: none Current living situation: Home, With Family Activity Level: Independent ambulation Recent Out of Country Travel Within the Last 8 Weeks: No - Family History Mother History Unknown: Yes Living Status: Father History Unknown: Yes Living Status: - Additional Family History Additional family history: No known FH of DVT/PE; both daughters alive and well. Internal Medicine - H&P: Meds FLUoxetine HCl [Fluoxetine HCl] 40 mg PO DAILY 09/12/17 [History] traZODone [TraZODone] 150 mg PO HS 09/12/17 [History] Omeprazole [PriLOSEC] 40 mg PO DAILY #30 capsule. 12/05/17 [Rx] Gabapentin [Neurontin] 100 mg PO TID 30 Days #90 capsule 01/16/18 [Rx] Albuterol Sulfate [Proair Hfa] 2 puff IH Q4H PRN 01/22/18 [History] Alendronate Sodium [Fosamax] 70 mg PO QWEEK 01/22/18 [History] Atorvastatin [Lipitor] 40 mg PO HS 01/22/18 [History] Budesonide/Formoterol 160/4.5 [Symbicort 160/4.5] 2 puff IH BIDR 01/22/18 [History] Docusate Sodium [Dok] 100 mg PO BID 01/22/18 [History] Ranitidine HCl [Zantac] 300 mg PO DAILY 01/22/18 [History] Allergy/AdvReac Type Severity Reaction Status Date / Time No Known Allergies Allergy Verified 01/22/18 14:07 - Constitutional Constitutional: anorexia, fatigue, weakness, weight loss, no chills, no fever(s), no night sweats - EENT Eyes: no blurry vision, no change in vision Ears: no ear pain, no tinnitus Nose, mouth and throat: dry mouth, dysphagia, hoarseness, mouth pain, no nasal congestion, no sinus pain, no sinus pressure - Cardiovascular Cardiovascular ROS IM: dyspnea, dyspnea on exertion, no chest pain, no edema, no irregular heart rhythm, no palpitations, no syncope - Respiratory Respiratory: cough, dyspnea, chest congestion, excessive phlegm production, change in phlegm color, no hemoptysis, no pain on inspiration, no pain with cough - Gastrointestinal Gastrointestinal: dysphagia, no abdominal pain, no diarrhea, no hematemesis, no hematochezia, no melena, no nausea, no vomiting - Genitourinary Genitourinary ROS male: no dysuria, no flank pain, no hematuria - Musculoskeletal Musculoskeletal ROS IM: no arthralgias, no back pain - Integumentary Integumentary IM: no rash, no jaundice - Neurological Neurological ROS: no dizziness, no focal weakness, no frequent falls, no headache(s) - Psychiatric Psychiatric: no anxiety, no depression - Endocrine Endocrine IM: no polydipsia, no polyphagia, no polyuria - Allergic/Immunologic Allergic/Immunologic: no GI upset with certain foods - Constitutional Vitals: Temp Pulse Resp BP Pulse Ox 97.8 F 59 15 153/73 96 01/22/18 19:30 01/22/18 19:30 01/22/18 19:30 01/22/18 19:30 01/22/18 19:30 General appearance: Present: cooperative, A&O X 3, pleasant, no acute distress, loss of weight, answers questions appropriately Exam: weak, frail, muffled voice (chronic -- not new); no acute distress but with + productive cough. - Head Head exam: Present: normal inspection - Eye Eye exam: Present: EOMI, PERRL. Absent: scleral icterus Pupils: Present: normal accommodation - ENT ENT exam: Present: mucous membranes dry Additional comments: limited oropharygeal view due to limited oral opening from XRT; no obvious airway obstruction but soft palate and tonsillar pillars appear full - Neck Neck exam general surgery: Present: tenderness (left anterior cerivcal neck area). Absent: thyromegaly - Respiratory Respiratory exam: Present: prolonged expiratory phase, rales (few scattered), rhonchi. Absent: chest wall tenderness, CTAB, respiratory distress, wheezes - Cardiovascular Cardiovascular exam: Present: RRR, +S1, +S2. Absent: diastolic murmur, systolic murmur - GI/Abdominal GI/Abdominal exam: Present: soft. Absent: guarding, hepatomegaly, mass, rebound, splenomegaly, tenderness Additional comments: scaphoid - Extremities Exam Extremities exam: Present: full ROM, normal capillary refill, warm, radial pulses palpable and symmetrical. Absent: calf tenderness, joint swelling, pedal edema, tenderness Additional comments: muscle atrophy noted - Back Exam Back exam: Present: normal inspection. Absent: CVA tenderness (L), CVA tenderness (R) - Neurological Exam Neurological exam: Present: alert, CN II-XII intact, oriented X3, no focal deficits Additional comments: muffled voice -- chronic since cancer diagnosis - Psychiatric Psychiatric exam: Present: normal affect, normal mood - Skin Skin exam: Present: dry, intact, warm Internal Med - H&P Results - Labs Labs: Cardiac Enzymes 01/22/18 Range/Units 20:26 Troponin I < 0.03 (< 0.04) ng/mL I reviewed labs from [place] and they include the following: WBC 12.4 Hemoglobin 9.9 Hematocrit 30.9 Platelets 223 PT 12.5 INR 1.1 PTT 27.1 D-dimer 5459 Sodium 130 Potassium 4.5 Chloride 100 Carbon dioxide 26 BUN 34 Creatinine 0.94 Glucose 98 Troponin < 0.03 - Diagnostic Studies Chest x-ray Status: image reviewed by me (negative) - Assessment and plan (1) Dyspnea Current Visit: Yes Status: Acute Assessment and plan: 1. Given D-Dimer > 5000 and H&N cancer, I am ordering a STAT CTA chest to rule out PE. 2. Will order EKG and serial troponins to rule out angina -- low suspicion. 3. Will treat for COPD and suspected pneumonia as detailed below. Qualifiers: Dyspnea type: shortness of breath Qualified Code(s): R06.02 - Shortness of breath; R06.00 - Dyspnea, unspecified; R06.01 - Orthopnea (2) Pneumonia Current Visit: Yes Status: Suspected Assessment and plan: 1. CXR negative, but I suspect pneumonia on clinical grounds. 2. Will order blood and sputum cultures and start treatment with Levaquin. 3. Will provide aerosols PRN and oxygen as needed for support. 4. Not actively wheezing; thus will hold off on steroids for now and monitor clinically. Qualifiers: Pneumonia type: due to unspecified organism Laterality: unspecified laterality Lung location: unspecified part of lung Qualified Code(s): J18.9 - Pneumonia, unspecified organism (3) Cancer of soft palate Current Visit: Yes Status: Chronic Assessment and plan: 1. Consult Oncology and speech therapy given worsening dsyphagia. 2. Patient finished XRT 11/27/17; has not had any surgery or chemotherapy. 3. Further work-up/staging per oncology. (4) Oropharyngeal dysphagia Current Visit: No Status: Acute Assessment and plan: 1. Will make patient npo and give meds/feeds per PEG tube only. 2. Consult speech for swallowing assessment diet recommendations. 3. Will likely need nutrition consult as well given weight loss and FTT. (5) DVT prophylaxis Current Visit: Yes Status: Acute Assessment and plan: 1. Heparin SQ for now; patient may need full anti-coagulation pending CTA chest.
[2018-01-22] MEDS: traMADol 50 MG TABLET GTUBE PRN (22:24)
[2018-01-22] MEDS: Docusate Oral Soln 100 MG/10 ML UDC GTUBE SCH (22:24)
[2018-01-22] MEDS: Gabapentin 100 MG CAPSULE GTUBE SCH (22:24)
[2018-01-22] MEDS: Levofloxacin 750 MG/150 ML 750 MG/150 ML BAG IVPB SCH (22:25)
[2018-01-22] MEDS: traZODone 50 MG TABLET GTUBE SCH (22:25)
[2018-01-22] MEDS: 0.9 % Sodium Chloride 1,000 ML IVC SCH (22:26)
[2018-01-23] MEDS: Budesonide/Formoterol 160/4.5 1 PUFF INH IH SCH ×3 (00:17→23:54)
[2018-01-23] MEDS: Ipratropium/Albuterol Neb 3 ML IH SCH ×7 (00:34→23:54)
[2018-01-23 02:01] LABS: Basophils % 0.1 %; Eosinophils % 0.2 %; Hematocrit 30.5 % (37.5-50.1); Hemoglobin 9.6 g/dL (12.9-16.9); Immature Granulocytes % 0.5 % (0-4); Lymphocytes # 0.6 K/mcL (0.6-4.6); Lymphocytes % 5.2 %; Mean Corpuscular HGB Conc 31.5 g/dL (31.6-35.5); Mean Corpuscular Hemoglobin 24.7 pg (28.0-33.3); Mean Corpuscular Volume 78.4 fL (83.0-100.0); Mean Platelet Volume 8.6 fL (9.4-12.4); Monocytes # 0.5 K/mcL (0.0-1.3); Monocytes % 4.7 %; Platelet Count 189 K/mcL (140-400); Red Blood Count 3.89 M/mcL (4.19-5.50); Red Cell Distribution Width 16.4 % (11.5-14.5); Segmented Neutrophils % 89.3 %
[2018-01-23 02:22] LABS: Alanine Aminotransferase 56 Units/L (7-52); Albumin 2.8 g/dL (3.5-5.7); Alkaline Phosphatase 93 Units/L (34-104); Aspartate Amino Transferase 41 Units/L (13-39); BUN/Creatinine Ratio 31 (6-26); Bilirubin,Total 0.4 mg/dL (0.3-1.0); Blood Urea Nitrogen 25 mg/dL (8-23); Calcium 8.6 mg/dL (8.6-10.3); Carbon Dioxide 23 mEq/L (23-29); Chloride 100 mEq/L (98-107); Globulin 2.7 g/dL (2.4-3.5); Glucose 86 mg/dL (70-105); Magnesium 1.7 mg/dL (1.6-2.6); Osmolality,Calculated 274 (280-300); Potassium 4.1 mEq/L (3.5-5.1); Sodium 130 mEq/L (136-145); Total Protein 5.5 g/dL (6.4-8.9); eGFR For Non-African Americans > 60 (> 60)
[2018-01-23] MEDS: Famotidine 20 MG/2 ML VIAL IVP SCH ×2 (05:49→16:57)
[2018-01-23] MEDS: Pantoprazole 40 MG VIAL IVP SCH ×2 (05:49→16:57)
[2018-01-23] MEDS: *HR* Heparin 5,000 UNIT/ML VIAL SQ SCH ×2 (05:49→17:48)
[2018-01-23] MEDS: Levofloxacin 750 MG/150 ML 750 MG/150 ML BAG IVPB SCH (10:27)
[2018-01-23] MEDS: Docusate Oral Soln 100 MG/10 ML UDC GTUBE SCH ×2 (10:27→22:59)
[2018-01-23] MEDS: Gabapentin 100 MG CAPSULE GTUBE SCH ×3 (10:27→22:59)
[2018-01-23] MEDS: traMADol 50 MG TABLET GTUBE PRN ×3 (10:30→23:00)
--- NOTE | 2018-01-23 11:53 | Internal Med Progress Note ---
Hospitalist Progress Note - Encounter Date of Encounter: 01/23/18 Time of Encounter: 11:48 - Subjective Interval History: No acute changes overnight, continues to have excess weakness and fatigue. - Exam Vitals: Temp Pulse Resp BP Pulse Ox 98.2 F 69 15 118/71 98 01/23/18 11:39 01/23/18 11:39 01/23/18 11:39 01/23/18 11:39 01/23/18 11:39 Exam: PHYSICAL EXAMINATION: GENERAL: The patient is an ill-appearing malnourished, anorexic elderly male who appears very weak and frail. He is alert and oriented 3. HEENT: Head is normocephalic and atraumatic. Extraocular muscles are intact. Pupils are equal, round, and reactive to light and accommodation. Muffled voice which is chronic as he had a neck cancer radiation treatment NECK: Supple. No carotid bruits. No lymphadenopathy or thyromegaly. LUNGS: Clear/diminished to auscultation B/L AP and L. HEART: Regular rate and rhythm, S1, S2 without murmur. ABDOMEN: Soft, nontender, and nondistended. Positive bowel sounds. No hepatosplenomegaly was noted. EXTREMITIES: Without any cyanosis, clubbing, rash, lesions or edema. NEUROLOGIC: Without facial droop or slurred speech PSYCHIATRIC: Appropriate affect, denies SI/HI, without agitation or anxiety SKIN: No ulceration or induration present. - Assessment and Plan (1) Cancer of soft palate Current Visit: Yes Status: Chronic Assessment and Plan: Cancer of soft palate, finished XRT 11/27/17. Has not had surgery or chemotherapy Has had worsening dysphagia over the last 4 months as well as weight loss Consult oncology; thank you for your recommendations Nutrition consult; recommend to increase caloric content of tube feeding Speech therapy consult; recommended nectar thick liquids only and tube feedings; no food by mouth Patient has had increase in dyspnea over the last [address] imaging in early December reveals pulmonary nodules; that time concern for infectious process versus metastatic process Elevated d-dimer throughout the stay as well as dyspnea CTA chest obtained with findings of increasing amount of pulmonary nodules and increase in size, these nodules are noncalcified, consider metastatic process Further recommendations from oncology pending (2) Oropharyngeal dysphagia Current Visit: No Status: Acute Assessment and Plan: [facility] afternoon Recommendations for nectar thick liquids only, no food by mouth Continue tube feeds; increase calorie per tube feed as per nutrition recommendations (3) Dyspnea Current Visit: Yes Status: Acute Assessment and Plan: Continue treating for COPD and suspected pneumonia CTA chest negative for PE Serial troponins negative (4) Pneumonia Current Visit: Yes Status: Suspected Assessment and Plan: Chest x-ray negative for acute pulmonary process CTA of chest negative for PE; findings of severe emphysema and extensive scarring bilaterally as well as increasing number and size of pulmonary nodules given history consider metastatic process. Blood cultures pending Sputum cultures pending Continue when necessary aerosols and O2 for respiratory support Remain clear/diminished throughout with no active wheezing Continue monitor closely Oncology to see in consultation Given immunocompromise state, continue Levaquin (5) Pulmonary nodules Current Visit: Yes Status: Acute Assessment and Plan: ABOVE (6) DVT prophylaxis Current Visit: Yes Status: Acute Assessment and Plan: SC HEPARIN - Time Spent with Patient Total time spent is greater than 50% in coordination of care (as documented) at patient's floor/unit and/or counseling patient: less than 15 minutes Plan of Care Discussed with: patient Internal Medicine: Result - Labs CBC & Chem 7: 01/23/18 01:51 01/23/18 01:51 Labs: Short CBC 01/23/18 Range/Units 01:51 WBC 11.2 H (4.3-11.1) K/mcL Hgb 9.6 L (12.9-16.9) g/dL Hct 30.5 L (37.5-50.1) % Plt Count 189 (140-400) K/mcL Neutrophils # 10.0 H (1.6-8.9) K/mcL BMP 01/23/18 01:51 Sodium 130 L Potassium 4.1 Chloride 100 Carbon Dioxide 23 BUN 25 H Creatinine 0.80 Glucose 86 Calcium 8.6 Cardiac Enzymes 01/22/18 01/23/18 01/23/18 Range/Units 20:26 01:51 08:16 Troponin I < 0.03 < 0.03 < 0.03 (< 0.04) ng/mL Liver Function 01/23/18 Range/Units 01:51 Total Bilirubin 0.4 (0.3-1.0) mg/dL AST 41 H (13-39) Units/L ALT 56 H (7-52) Units/L Alkaline Phosphatase 93 (34-104) Units/L Albumin 2.8 L (3.5-5.7) g/dL - ABG Interpretation ABG results: PT/INR, D-dimer PT 12.5 Seconds (9.4-12.1) H 01/22/18 20:26 - Impressions Impressions Chest CTA 01/22/18 20:06 IMPRESSION: 1. No scan evidence for pulmonary embolus. 2. Worsening pulmonary nodules, likely metastatic disease. D/ / Arnulfo Hernández MD / Arnulfo Hernández MD Interpreting Provider: Arnulfo Hernández MD Videofluoroscopic Swallow 01/23/18 09:11 IMPRESSION: Deep laryngeal penetration and aspiration. Please see separate speech pathology report for full discussion of findings and recommendations. D/ / 01/23/2018 10:56:53 Neo Ramos MD / raul Interpreting Provider: Neo Ramos MD Consult Discharge Plan - Plan [facility]errals: [facility] [Primary Care Provider] - (3) Dyspnea Qualifiers: Dyspnea type: shortness of breath Qualified Code(s): R06.02 - Shortness of breath; R06.00 - Dyspnea, unspecified; R06.01 - Orthopnea (4) Pneumonia Qualifiers: Pneumonia type: due to unspecified organism Laterality: unspecified laterality Lung location: unspecified part of lung Qualified Code(s): J18.9 - Pneumonia, unspecified organism
[2018-01-23] MEDS: 0.9 % Sodium Chloride 1,000 ML IVC SCH (13:30)
[2018-01-23] MEDS: Magic Mouthwash 10 ML UD Cup PO SCH ×2 (15:10→19:32)
[2018-01-23] MEDS: Thiamine (B-1) 100 MG TABLET PO SCH (15:10)
[2018-01-23] MEDS: traZODone 50 MG TABLET GTUBE SCH (22:59)
[2018-01-24] MEDS: Ipratropium/Albuterol Neb 3 ML IH SCH ×6 (04:40→23:29)
[2018-01-24] MEDS: traMADol 50 MG TABLET GTUBE PRN (05:30)
[2018-01-24] MEDS: Pantoprazole 40 MG VIAL IVP SCH ×2 (05:53→17:46)
[2018-01-24] MEDS: Famotidine 20 MG/2 ML VIAL IVP SCH ×2 (05:53→17:46)
[2018-01-24] MEDS: *HR* Heparin 5,000 UNIT/ML VIAL SQ SCH ×2 (06:11→17:43)
[2018-01-24] MEDS: Budesonide/Formoterol 160/4.5 1 PUFF INH IH SCH ×2 (07:11→19:25)
--- NOTE | 2018-01-24 07:49 | Oncology Inp Consult Note ---
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 CT imaging was negative for pulmonary embolism. Culture data pending, he is on empiric antibiotics. Patient has noticed some improvement since the prior day of hospitalization. He uses Magic mouthwash as needed for pain control and tramadol. Lab works mild hyponatremia,possible dehydration Pulmonary nodules which have been increasing in size, likely metastatic disease. He is on antibiotics for possible infectious etiology, evidence for aspiration as well. 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 Suuportive treatment. Outpatient w/u for lung nodules if he will be a treatment candidate. Plan d.w patient bedside on 01/23/18. - Data of Consult Requesting Physician: Augusto Finch MD Primary Care Provider: PCP [place] - Consult Narrative Reason for consult: head and neck cancer, wkness History of present illness: Mr. Hardy is a 78 year old male with med hx significant for arthritis, hyperlipidemia, COPD on home oxygen, hx carcinoma of soft palate/tonsil p16+ T2N0M?, Underwent a radiation therapy to the throat and the elective radiation to the neck area completed in November [address] imaging that had shown pleural based nodules at that time. He has a G-tube and has used it for feedings. He underwent a swallow evaluation that showed the penetration aspiration findings. A CT angiogram did not show any pulmonary embolism, was significant for enlargement of pulmonary nodules. Patient has brought into the hospital with weakness over several months patient reports that he has difficulty swallowing mucositis symptoms that is not better since he completed radiation therapy in November 2017. He has lost weight since his diagnosis of the cancer. Ct scan of the neck at completion of treatment had shown the soft tissue mass, decreased in size since the previous study on 09/16/2017 Past Med Surg Social Fam HX - Past Medical History Medical history: arthritis, cancer, coronary artery disease, hyperlipidemia, renal disease Additional medical history: kidney disease, ED, hyperkalemia, gastritis, CAD, Psychiatric history: no psych history - Past Surgical History Surgical History: cataract, coronary bypass (CABG) Additional surgical history: peg tube placement, right hand surgery, right distal tip of ring finger amputation - Social History Smoking Status: Current every day smoker Smokeless Tobacco Status: No Alcohol use: none Drug use: none - Family History Mother History Unknown: Yes Living Status: Father History Unknown: Yes Living Status: Medications and Allergies FLUoxetine HCl [Fluoxetine HCl] 40 mg PO DAILY 09/12/17 [History] traZODone [TraZODone] 150 mg PO HS 09/12/17 [History] Omeprazole [PriLOSEC] 40 mg PO DAILY #30 capsule. 12/05/17 [Rx] Gabapentin [Neurontin] 100 mg PO TID 30 Days #90 capsule 01/16/18 [Rx] Albuterol Sulfate [Proair Hfa] 2 puff IH Q4H PRN 01/22/18 [History] Alendronate Sodium [Fosamax] 70 mg PO QWEEK 01/22/18 [History] Atorvastatin [Lipitor] 40 mg PO HS 01/22/18 [History] Budesonide/Formoterol 160/4.5 [Symbicort 160/4.5] 2 puff IH BIDR 01/22/18 [History] Docusate Sodium [Dok] 100 mg PO BID 01/22/18 [History] Ranitidine HCl [Zantac] 300 mg PO DAILY 01/22/18 [History] Allergy/AdvReac Type Severity Reaction Status Date / Time No Known Allergies Allergy Verified 01/22/18 14:07 Review of systems: weakness, no fever Constitutional: Present: malaise, weakness Cardiovascular: Present: dyspnea on exertion Respiratory: Present: dyspnea Gastrointestinal: Present: as per HPI Neurological: Present: as per HPI Oncology - Exam - Constitutional Vitals: Temp Pulse Resp BP Pulse Ox 97.8 F 78 16 133/69 96 01/24/18 07:24 01/24/18 07:24 01/24/18 07:24 01/24/18 07:24 01/24/18 07:24 General appearance: no acute distress, thin - Head Head exam: Present: atraumatic, normal inspection - Eye Eye exam: Present: sclera anicteric - ENT ENT exam: Present: mucous membranes dry Additional comments: mucosal dryness mucositis from radiation therapy - Neck Neck exam: Present: full ROM - Respiratory Respiratory exam: Present: CTAB, wheezes - Cardiovascular Cardiovascular exam: Present: +S1, +S2 - GI/Abdominal GI/Abdominal exam: Present: normal bowel sounds, soft - Extremities Exam Extremities exam: Present: normal inspection - Neurological Exam Neurological exam: Present: alert, CN II-XII intact, oriented X3 - Psychiatric Psychiatric exam: Present: normal affect - Skin Skin exam: Present: dry Oncology - Results Labs: 01/23/18 01/23/18 01/23/18 13:13 08:16 01:51 WBC RBC Hgb Hct MCV MCH MCHC RDW Plt Count MPV Immature Gran % Seg Neutrophils % Lymphocytes % Monocytes % Eosinophils % Basophils % Neutrophils # Lymphocytes # Monocytes # Eosinophils # Basophils # PT INR APTT Sodium 130 L Potassium 4.1 Chloride 100 Carbon Dioxide 23 BUN 25 H Creatinine 0.80 Est GFR ( Amer) > 60 Est GFR (Non-Af Amer) > 60 BUN/Creatinine Ratio 31 H Glucose 86 Calculated Osmolality 274 L Calcium 8.6 Phosphorus 3.1 Magnesium 1.7 Total Bilirubin 0.4 AST 41 H ALT 56 H Alkaline Phosphatase 93 Troponin I < 0.03 Serum Total Protein 5.5 L Albumin 2.8 L Globulin 2.7 Albumin/Globulin Ratio 1.0 L 01/23/18 01/23/18 01/22/18 01:51 01:51 20:26 WBC 11.2 H RBC 3.89 L Hgb 9.6 L Hct 30.5 L MCV 78.4 L MCH 24.7 L MCHC 31.5 L RDW 16.4 H Plt Count 189 MPV 8.6 L Immature Gran % 0.5 Seg Neutrophils % 89.3 Lymphocytes % 5.2 Monocytes % 4.7 Eosinophils % 0.2 Basophils % 0.1 Neutrophils # 10.0 H Lymphocytes # 0.6 Monocytes # 0.5 Eosinophils # 0.0 Basophils # 0.0 PT INR APTT Sodium Potassium Chloride Carbon Dioxide BUN Creatinine Est GFR ( Amer) Est GFR (Non-Af Amer) BUN/Creatinine Ratio Glucose Calculated Osmolality Calcium Phosphorus Magnesium Total Bilirubin AST ALT Alkaline Phosphatase Troponin I < 0.03 < 0.03 Serum Total Protein Albumin Globulin Albumin/Globulin Ratio 01/22/18 20:26 WBC RBC Hgb Hct MCV MCH MCHC RDW Plt Count MPV Immature Gran % Seg Neutrophils % Lymphocytes % Monocytes % Eosinophils % Basophils % Neutrophils # Lymphocytes # Monocytes # Eosinophils # Basophils # PT 12.5 H INR 1.1 APTT 27.1 Sodium Potassium Chloride Carbon Dioxide BUN Creatinine Est GFR ( Amer) Est GFR (Non-Af Amer) BUN/Creatinine Ratio Glucose Calculated Osmolality Calcium Phosphorus Magnesium Total Bilirubin AST ALT Alkaline Phosphatase Troponin I Serum Total Protein Albumin Globulin Albumin/Globulin Ratio Consult Discharge Plan - Plan [facility]errals: [facility] [Primary Care Provider[facility] - Inpatient Charges Provider: Dr. Hubert Kuo Consult - Inpatient: [id number]
[2018-01-24 08:59] LABS: Basophils % 0.1 %; Eosinophils % 0.3 %; Hematocrit 29.1 % (37.5-50.1); Hemoglobin 9.2 g/dL (12.9-16.9); Immature Granulocytes % 0.4 % (0-4); Lymphocytes # 0.4 K/mcL (0.6-4.6); Lymphocytes % 4.7 %; Mean Corpuscular HGB Conc 31.6 g/dL (31.6-35.5); Mean Corpuscular Hemoglobin 24.8 pg (28.0-33.3); Mean Corpuscular Volume 78.4 fL (83.0-100.0); Mean Platelet Volume 9.2 fL (9.4-12.4); Monocytes # 0.6 K/mcL (0.0-1.3); Monocytes % 6.6 %; Neutrophils # 7.9 K/mcL (1.6-8.9); Platelet Count 194 K/mcL (140-400); Red Blood Count 3.71 M/mcL (4.19-5.50); Red Cell Distribution Width 16.3 % (11.5-14.5); Segmented Neutrophils % 87.9 %
[2018-01-24 09:15] LABS: BUN/Creatinine Ratio 23 (6-26); Blood Urea Nitrogen 18 mg/dL (8-23); Calcium 8.5 mg/dL (8.6-10.3); Carbon Dioxide 25 mEq/L (23-29); Chloride 100 mEq/L (98-107); Glucose 135 mg/dL (70-105); Osmolality,Calculated 280 (280-300); Potassium 3.9 mEq/L (3.5-5.1); Sodium 133 mEq/L (136-145); eGFR For Non-African Americans > 60 (> 60)
[2018-01-24] MEDS: Magic Mouthwash 10 ML UD Cup PO SCH ×3 (09:55→15:22)
[2018-01-24] MEDS: FLUoxetine 20 MG CAPSULE PO SCH (10:26)
[2018-01-24] MEDS: Thiamine (B-1) 100 MG TABLET PO SCH (10:26)
[2018-01-24] MEDS: Gabapentin 100 MG CAPSULE GTUBE SCH ×3 (10:26→19:58)
[2018-01-24] MEDS: Docusate Oral Soln 100 MG/10 ML UDC GTUBE SCH ×2 (10:26→19:58)
[2018-01-24] MEDS: Levofloxacin 750 MG/150 ML 750 MG/150 ML BAG IVPB SCH (10:26)
[2018-01-24] MEDS: *HR* OxyCODONE Immed Rel 5 MG TABLET PO PRN (10:38)
--- NOTE | 2018-01-24 10:58 | Palliative - Consult Note ---
Date of Encounter: 01/24/18 Time of Encounter: 10:00 - Assessment and Plan (1) Goals of care, counseling/discussion Current Visit: Yes Status: Acute Assessment and plan: Met with pt at the bedside, and discussed current medical condition, trajectory of illness, overall poor prognosis, treatment options. Patient is aware that new lesions were found and was seen by oncology today. He refuses any further cancer treatment and would like focus on comfort care. Patient was living home alone until now, but is unabe to continue to de so. He has 2 daughters and a son, and his daughter Sarah Beth is the POA, he would like further discussion to be continued with her. Discussed code status, pt stated that he has a DNR, and would like to continue to be DNRCC, with no intubation. DNR for filled. Called Sarah Beth and discussed pt's condition. Daughter is aware of the terminal nature of pt's conditions. She states that her sister works at [facility], and Yesterday the contacted [facility] for hospice admission at [facility]. However, there are some financial barrier that need to be addressed. CHELSEY Card involved. (2) Cancer associated pain Current Visit: Yes Status: Acute Assessment and plan: Patient was in pain at the time of exam, pain located on the whole left face, from the jaw to the ear. pain is constant, with moments of shooting. Patien at home was on morphine ER 15 mg BID and oxycodone IR 5 to 10 mg q4hrs. Given oxycodone 10 mg once and will continue q6hrs scheduled as pt is not likely to ask for medication, and q4hrs prn. will define a long actic regimen after 24 hrs based on pt's needs. will continue gabapentin 100mg TID. will d/c tramadol. continue magic mouth wash (3) Cancer of soft palate Current Visit: Yes Status: Chronic Assessment and plan: Patient refusing any further c ancer work up or treatment. (4) Oropharyngeal dysphagia Current Visit: No Status: Acute (5) Failure to thrive Current Visit: Yes Status: Acute Assessment and plan: Barium swallow evaluation was positive for aspiration. Pt recommended for thickened fluids only orally rest of food and nutrition per G tube. caloric intake increased per account resolution analyst. Qualifiers: Failure to thrive age range: in adult Qualified Code(s): R62.7 - Adult failure to thrive Palliative-CN HPI - Data of Consult Patient: new to practice Consult date: 01/23/18 Requesting Physician: Augusto Finch MD Primary Care Provider: PCP [place] - Consult Narrative Palliative Care/Comfort Measures: Palliative care Reason for consult: Goals of care History of present illness: Mr. Hardy is a 78 year old male who presents to the hospital today in transfer from [facility] ER for concerns of dyspnea, profound weakness, cough, and weight loss. He has been treated for head and neck cancer with localized radiation. His last treatment was on 11/27/2017. He has been unable to eat or drink much by mouth due to dysphagia, productive cough, and shortness of breath. He does have a feeding tube in place, which he uses for tube feeds. Despite the tube feeding, he is continuing to lose weight. Workup in [place] included imaging, routine labs, and an elevated d-dimer of over 5000. Patient denies any chest pain, pleurisy, palpitations, tachycardia, or syncope. CT angiogram of the chest was done an PE ruled out. However, it revealed numerous pulmonary nodules which has increased in size. Palliative care consult for goals of care discussion. Patient this morning was sitting in the chair after PT. He was holding his hand over his left face and complaining of pain. He stated since admission his pain has not been controlled, and is worsening since last night. Also complaining of copious oral secretions. He denies nausea, vomiting, dizziness. He has not had a BM since admission. CC: Augusto Finch MD - Time Spent with Patient Time: Total time spent is greater than 50% in coordination of care (as documented) at patient's floor/unit and/or counseling patient: Greater than 35 minutes Past Med Surg Social Fam HX - Past Medical History Medical history: arthritis, cancer, coronary artery disease, hyperlipidemia, renal disease Additional medical history: kidney disease, ED, hyperkalemia, gastritis, CAD, Psychiatric history: no psych history - Past Surgical History Surgical History: cataract, coronary bypass (CABG) Additional surgical history: peg tube placement, right hand surgery, right distal tip of ring finger amputation - Social History Smoking Status: Current every day smoker Smokeless Tobacco Status: No Alcohol use: none Drug use: none - Family History Mother History Unknown: Yes Living Status: Father History Unknown: Yes Living Status: Medications and Allergies FLUoxetine HCl [Fluoxetine HCl] 40 mg PO DAILY 09/12/17 [History] traZODone [TraZODone] 150 mg PO HS 09/12/17 [History] Omeprazole [PriLOSEC] 40 mg PO DAILY #30 capsule. 12/05/17 [Rx] Gabapentin [Neurontin] 100 mg PO TID 30 Days #90 capsule 01/16/18 [Rx] Albuterol Sulfate [Proair Hfa] 2 puff IH Q4H PRN 01/22/18 [History] Alendronate Sodium [Fosamax] 70 mg PO QWEEK 01/22/18 [History] Atorvastatin [Lipitor] 40 mg PO HS 01/22/18 [History] Budesonide/Formoterol 160/4.5 [Symbicort 160/4.5] 2 puff IH BIDR 01/22/18 [History] Docusate Sodium [Dok] 100 mg PO BID 01/22/18 [History] Ranitidine HCl [Zantac] 300 mg PO DAILY 01/22/18 [History] Allergy/AdvReac Type Severity Reaction Status Date / Time No Known Allergies Allergy Verified 01/22/18 14:07 - Constitutional Constitutional ROS PAL: anorexia, fatigue, frequent falls, weight loss - EENT Ears: decreased hearing (left ear) Additional comments: increased secretions - Cardiovascular Cardiovascular ROS: no chest pain, no chest pain at rest - Respiratory Respiratory: no cough, no dyspnea - Gastrointestinal Gastrointestinal: no abdominal pain, no bloating, no change in bowel habits - Genitourinary Genitourinary ROS male: no dysuria - Musculoskeletal Musculoskeletal ROS IM: muscle weakness - Integumentary ROS Integumentary: dry skin - Neurological Neurological ROS: weakness, no dizziness, no focal weakness Palliative Care-Exam - Constitutional Vitals: Temp Pulse Resp BP Pulse Ox 97.8 F 78 16 133/69 96 01/24/18 07:24 01/24/18 07:24 01/24/18 07:24 01/24/18 07:24 01/24/18 07:24 General appearance: Present: no acute distress, thin Exam: cachetic, sick looking - Head Head Exam: Present: atraumatic Additional comments: Muffled voice which is chronic as he had a neck cancer radiation treatment - Eye Eye exam: Present: EOMI - Neck Neck exam: Present: full ROM. Absent: lymphadenopathy, thyromegaly - Respiratory Respiratory exam: Present: CTAB. Absent: accessory muscle use - Cardiovascular Cardiovascular exam: Present: RRR, +S1, +S2 - GI/Abdominal Exam GI/Abdominal exam: Present: soft, tenderness. Absent: guarding, mass - Extremities Exam Extremities exam: Present: full ROM. Absent: pedal edema, tenderness - Neurological Exam Neurological exam: Present: oriented X3, speech deficit (slurred speach 2/2 radiations) - Psychiatric Psychiatric exam: Present: normal affect, normal mood Internal Medicine - CN: Reslt - Labs CBC & Chem 7: 01/24/18 08:44 01/24/18 08:44 Labs: Short CBC 01/24/18 Range/Units 08:44 WBC 9.0 (4.3-11.1) K/mcL Hgb 9.2 L (12.9-16.9) g/dL Hct 29.1 L (37.5-50.1) % Plt Count 194 (140-400) K/mcL Neutrophils # 7.9 (1.6-8.9) K/mcL BMP 01/24/18 08:44 Sodium 133 L Potassium 3.9 Chloride 100 Carbon Dioxide 25 BUN 18 Creatinine 0.77 Glucose 135 H Calcium 8.5 L - ABG Interpretation ABG results: PT/INR, D-dimer PT 12.5 Seconds (9.4-12.1) H 01/22/18 20:26 - Impressions Impressions Videofluoroscopic Swallow 01/23/18 09:11 IMPRESSION: Deep laryngeal penetration and aspiration. Please see separate speech pathology report for full discussion of findings and recommendations. D/ / 01/23/2018 10:56:53 Neo Ramos MD / raul Interpreting Provider: Neo Ramos MD Consult Discharge Plan - Plan [facility]errals: [facility] [Primary Care Provider] - Palliative Quality Palliative Quality: Screen for Code Status: Yes, Screen for Goals of Care: Yes, Screen for Pain: Yes, If Pain Regimen Started, Initiate Bowel Regimen: Yes, Screen for Nausea/Vomitting: Yes Code Status: DNRCC
--- NOTE | 2018-01-24 12:44 | Internal Med Progress Note ---
Hospitalist Progress Note - Encounter Date of Encounter: 01/24/18 Time of Encounter: 12:41 - Subjective Interval History: No acute changes overnight, continues to have excess weakness and fatigue. Getting TF at increased caloric content 2/2 weight-loss and failure to thrive. Continue PT/OT, attempting to set-up d/c to [facility] - Exam Vitals: Temp Pulse Resp BP Pulse Ox 97.8 F 66 16 111/51 99 01/24/18 11:58 01/24/18 11:58 01/24/18 11:58 01/24/18 11:58 01/24/18 11:58 Exam: PHYSICAL EXAMINATION: GENERAL: The patient is an ill-appearing malnourished, anorexic elderly male who appears very weak and frail. He is alert and oriented 3. HEENT: Head is normocephalic and atraumatic. Extraocular muscles are intact. Pupils are equal, round, and reactive to light and accommodation. Muffled voice which is chronic as he had a neck cancer radiation treatment NECK: Supple. No carotid bruits. No lymphadenopathy or thyromegaly. LUNGS: Clear/diminished to auscultation B/L AP and L. HEART: Regular rate and rhythm, S1, S2 without murmurs, rubs or gallobs. ABDOMEN: Soft, nontender, and nondistended. Positive bowel sounds. No hepatosplenomegaly was noted. EXTREMITIES: Without any cyanosis, clubbing, rash, lesions or edema. NEUROLOGIC: Without facial droop or slurred speech PSYCHIATRIC: Appropriate affect, denies SI/HI, without agitation or anxiety SKIN: No ulceration or induration present. - Assessment and Plan (1) Cancer of soft palate Current Visit: Yes Status: Chronic Assessment and Plan: Cancer of soft palate, finished XRT 11/27/17. Has not had surgery or chemotherapy Has had worsening dysphagia over the last 4 months as well as weight loss Consult oncology; thank you for your recommendations Nutrition consult; recommend to increase caloric content of tube feeding Speech therapy consult; recommended nectar thick liquids only and tube feedings; no food by mouth Patient has had increase in dyspnea over the last [address] imaging in early December reveals pulmonary nodules; that time concern for infectious process versus metastatic process Elevated d-dimer throughout the stay as well as dyspnea CTA chest obtained with findings of increasing amount of pulmonary nodules and increase in size, these nodules are noncalcified, consider metastatic process Further recommendations from oncology pending -oncology following; thank you -palliative care following; thank you -SS setting -up d/c to ECF continue with pt/ot continue nutritional support (2) Oropharyngeal dysphagia Current Visit: No Status: Acute Assessment and Plan: MBS indicates full penetration of thin liquids Recommendations for nectar thick liquids only, no food by mouth Continue tube feeds; increase calorie per tube feed as per nutrition recommendations (3) Dyspnea Current Visit: Yes Status: Acute Assessment and Plan: Continue treating for COPD and suspected pneumonia CTA chest negative for PE Serial troponins negative (4) Pneumonia Current Visit: Yes Status: Suspected Assessment and Plan: Chest x-ray negative for acute pulmonary process CTA of chest negative for PE; findings of severe emphysema and extensive scarring bilaterally as well as increasing number and size of pulmonary nodules given history consider metastatic process. Blood cultures pending Sputum cultures pending Continue when necessary aerosols and O2 for respiratory support Remain clear/diminished throughout with no active wheezing Continue monitor closely Oncology to see in consultation Given immunocompromised state, continue Levaquin 01/24--WBD downtrending 9.0. No change in condition overnight. The patient is very frail and immunocompromised with cancer. Continue levaquin. Remains afebrile and hemodynamicaly stable. (5) Pulmonary nodules Current Visit: Yes Status: Acute Assessment and Plan: ABOVE (6) Moderate protein-calorie malnutrition Current Visit: No Status: Acute Assessment and Plan: Failure to thrive and weight-loss with moderate protein and calorie malnutrition H/O head and neck cancer with concerns for metastasis to lungs on recent CTA Patient and Family reporting continue fatigue, functional decline and weight- loss since radiation treatment ended He has dysphagia s/p radiation and is unable to take oral intake; MBS completed reveal penetration; Only allow to take nectar thick liquids otherwise NPO He is receiving bolus feeds with high calorie meal replacements through PEG tube With failure to thrive he is needing aggressive PT/OT as well as round the clock care He is a safe risk and is unsafe for discharge home as this will result in continued decline and/or . I will place him in inpatient status for continued therapy and round the clock supportive care Oncology following; appreciate recommendations Plan is to d/c to ECF for rehab Continue with PT/OT and Nutritional support serum total protein 5.5, albumin 2.8 technology services manager following to assist with D/C planning (7) Failure to thrive Current Visit: Yes Status: Acute Assessment and Plan: as above (8) Dehydration Current Visit: Yes Status: Acute Assessment and Plan: hyponatremia and dehydration 2/2 decreased oral intake with dysphagia s/p radiation with head and neck cancer continue IVF serum sodium improving (9) Hyponatremia Current Visit: Yes Status: Acute DVT Prophylaxis: SC Heparin - Time Spent with Patient Total time spent is greater than 50% in coordination of care (as documented) at patient's floor/unit and/or counseling patient: less than 15 minutes Plan of Care Discussed with: patient Internal Medicine: Result - Labs CBC & Chem 7: 01/24/18 08:44 01/24/18 08:44 Labs: Short CBC 01/24/18 Range/Units 08:44 WBC 9.0 (4.3-11.1) K/mcL Hgb 9.2 L (12.9-16.9) g/dL Hct 29.1 L (37.5-50.1) % Plt Count 194 (140-400) K/mcL Neutrophils # 7.9 (1.6-8.9) K/mcL BMP 01/24/18 08:44 Sodium 133 L Potassium 3.9 Chloride 100 Carbon Dioxide 25 BUN 18 Creatinine 0.77 Glucose 135 H Calcium 8.5 L - ABG Interpretation ABG results: PT/INR, D-dimer PT 12.5 Seconds (9.4-12.1) H 01/22/18 20:26 - Impressions Impressions Videofluoroscopic Swallow 01/23/18 09:11 IMPRESSION: Deep laryngeal penetration and aspiration. Please see separate speech pathology report for full discussion of findings and recommendations. D/ / 01/23/2018 10:56:53 Neo Ramos MD / raul Interpreting Provider: Neo Ramos MD Consult Discharge Plan - Plan [facility]errals: [facility] [Primary Care Provider] - (3) Dyspnea Qualifiers: Dyspnea type: shortness of breath Qualified Code(s): R06.02 - Shortness of breath; R06.00 - Dyspnea, unspecified; R06.01 - Orthopnea (4) Pneumonia Qualifiers: Pneumonia type: due to unspecified organism Laterality: unspecified laterality Lung location: unspecified part of lung Qualified Code(s): J18.9 - Pneumonia, unspecified organism (7) Failure to thrive Qualifiers: Failure to thrive age range: in adult Qualified Code(s): R62.7 - Adult failure to thrive
[2018-01-24] MEDS: 0.9 % Sodium Chloride 1,000 ML IVC SCH (15:23)
--- NOTE | 2018-01-24 17:27 | Oncology Inp Progress Note ---
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 CT imaging was negative for PE but did reveal pulmonary nodules which have been increasing in size, concerning for metastatic disease. Plan: Continue with supportive treatment (as below) and pain management Added diflucan x3 days to cover antifungal component of odynophagia, continue magic mouthwash Dr. Child recommends patient stop antibiotics, his ANC is normal, no sign of infection currently, continue to monitor cultures for growth We discussed goals of care with patient and patients daughter. His treatment related symptoms will continue to improve with supportive treatment. We discussed CT imaging which reveals an increase in size of his pulmonary nodules, this may be secondary to malignancy (i.e. progression of soft palate carcinoma) or a reactive process. We recommend he keep his appointment for PET scan in February along with his follow up with Dr. Ponce. Patient is interested in pursuing treatment options which could include systemic therapy/immunotherapy, if further imaging confirms malignancy (2) Moderate protein-calorie malnutrition Current Visit: No Status: Acute Assessment and plan: Admitted with increased weakness, dehydration, falls at home, odynophagia MBS completed reveal penetration; Only allow to take nectar thick liquids otherwise NPO He is receiving bolus feeds with high calorie meal replacements through PEG tube Continue PT/OT and nutritional support Appreciate the assistance of hospitalist team as well as therapy support services Plan is to d/c to [facility] for rehab Oncology: Subj Interval history: Mr. Hardy had no acute events overnight. He continues to experience left sided facial pain, this is improving with pain medication. He feels as though odynophagia is improving. He is able to eat soft foods, most of his intake is by PEG. Nutrition is following. Continues to feel weak but improved since admission - Constitutional Vitals: Vital Signs Temp Pulse Resp BP Pulse Ox 01/24/18 15:54 18 98 01/24/18 14:43 97.7 F 64 16 127/64 99 01/24/18 11:58 97.8 F 66 16 111/51 99 01/24/18 11:08 18 97 01/24/18 07:24 97.8 F 78 16 133/69 96 01/24/18 07:13 18 98 01/24/18 07:11 18 98 01/24/18 04:40 16 95 01/24/18 04:29 98.4 F 63 16 146/76 94 01/24/18 00:29 98 F 78 18 131/61 98 01/23/18 23:54 15 97 01/23/18 20:06 98.5 F 64 14 133/65 98 Intake and Output 01/24/18 01/24/18 01/24/18 07:59 15:59 23:59 Intake Total 160 / 160 Output Total 650 / 650 200 / 200 Balance -650 / -650 -40 / -40 Intake: Free Water Intake Amount 160 / 160 Output: Urine 650 / 650 200 / 200 Other: Weight 52.9 kg Patient Weight 01/24/18 23:59 Weight 52.9 kg General appearance: cooperative, no acute distress, thin, no febrile - Head Head exam: Present: atraumatic - ENT ENT exam: Present: mucous membranes dry Additional comments: Thick, brown coating to tongue/roof of mouth, edentulous - Respiratory Respiratory exam: Present: decreased breath sounds, CTAB. Absent: respiratory distress - Cardiovascular Cardiovascular exam: Present: RRR, +S1, +S2 - GI/Abdominal GI/Abdominal exam: Present: normal bowel sounds, soft. Absent: tenderness - Extremities Exam Extremities exam: Absent: calf tenderness - Neurological Exam Neurological exam: Present: alert, oriented X3, no focal deficits, strengths equal and symetr throughout - Psychiatric Psychiatric exam: Present: normal affect, normal mood - Skin Skin exam: Present: dry, intact, normal color, warm Oncology: Obj Data - Labs CBC & Chem 7: 01/25/18 05:01 01/25/18 05:01 Labs: Laboratory Results - last 24 hr 01/24/18 01/24/18 08:44 08:44 WBC 9.0 RBC 3.71 L Hgb 9.2 L Hct 29.1 L MCV 78.4 L MCH 24.8 L MCHC 31.6 RDW 16.3 H Plt Count 194 MPV 9.2 L Immature Gran % 0.4 Seg Neutrophils % 87.9 Lymphocytes % 4.7 Monocytes % 6.6 Eosinophils % 0.3 Basophils % 0.1 Neutrophils # 7.9 Lymphocytes # 0.4 L Monocytes # 0.6 Eosinophils # 0.0 Basophils # 0.0 Sodium 133 L Potassium 3.9 Chloride 100 Carbon Dioxide 25 BUN 18 Creatinine 0.77 Est GFR ( Amer) > 60 Est GFR (Non-Af Amer) > 60 BUN/Creatinine Ratio 23 Glucose 135 H Calculated Osmolality 280 Calcium 8.5 L - Impressions Impressions Videofluoroscopic Swallow 01/23/18 09:11 IMPRESSION: Deep laryngeal penetration and aspiration. Please see separate speech pathology report for full discussion of findings and recommendations. D/ / 01/23/2018 10:56:53 Neo Ramos MD / raul Interpreting Provider: Neo Ramos MD - ABG Interpretation ABG results: PT/INR, D-dimer PT 12.5 Seconds (9.4-12.1) H 01/22/18 20:26 Consult Discharge Plan - Plan [facility]errals: [facility] [Primary Care Provider[facility] - <Jm Child S - Last Filed: 01/26/18 12:53> Date of Encounter: 01/24/18 - Constitutional Vitals: Vital Signs Temp Pulse Resp BP Pulse Ox 01/26/18 11:05 12 98 01/26/18 07:50 12 98 01/26/18 07:17 98.8 F 71 18 110/69 96 01/26/18 02:53 99.1 F 69 14 138/70 95 01/25/18 23:33 20 97 01/25/18 22:53 99.3 F 93 20 110/63 97 01/25/18 19:48 18 94 01/25/18 19:06 99.2 F 88 16 107/64 97 01/25/18 16:23 99.6 F 88 16 105/62 99 01/25/18 16:08 16 97 Intake and Output 01/26/18 01/26/18 01/26/18 00:59 07:59 15:59 Intake Total Output Total Balance Intake: Free Water Intake Amount Output: Urine Other: Weight Patient Weight 01/26/18 22:59 Weight 54.4 kg Oncology: Obj Data - Labs CBC & Chem 7: 01/26/18 03:24 01/26/18 03:24 Labs: Laboratory Results - last 24 hr 01/26/18 01/26/18 03:24 03:24 WBC 8.7 RBC 3.71 L Hgb 9.2 L Hct 29.3 L MCV 79.0 L MCH 24.8 L MCHC 31.4 L RDW 16.5 H Plt Count 208 MPV 9.5 Immature Gran % 0.5 Seg Neutrophils % 85.2 Lymphocytes % 6.7 Monocytes % 6.0 Eosinophils % 1.5 Basophils % 0.1 Neutrophils # 7.4 Lymphocytes # 0.6 Monocytes # 0.5 Eosinophils # 0.1 Basophils # 0.0 Sodium 133 L Potassium 4.7 Chloride 98 Carbon Dioxide 29 BUN 22 Creatinine 0.72 Est GFR ( Amer) > 60 Est GFR (Non-Af Amer) > 60 BUN/Creatinine Ratio 31 H Glucose 123 H Calculated Osmolality 281 Calcium 8.9 - ABG Interpretation ABG results: PT/INR, D-dimer PT 12.5 Seconds (9.4-12.1) H 01/22/18 20:26 Inpatient Charges Provider: Dr. Sweetie Child Follow up - Inpatient: [id number] - Attending Attestation I examined this patient and my medical decision-making was reviewed with the Advanced Practice Nurse. I agree with the documented findings, disposition and treatment plan as described except to the extent set forth below. 1. 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 We will stop antibiotic this time as there is no evidence of ongoing infection. Diflucan 200 mg daily for 2 days of mucositis. 2. Slightly enlarged lung nodules which are still small. We will do a short- term imaging follow-up to make sure these are not inflammatory. Currently he is not enthusiastic about further treatment. He would need to rehabilitation facility before his radiation toxicity improved. Currently supportive measures If lung nodules proved to be metastatic he may be a candidate for immunotherapy
[2018-01-24] MEDS: *HR* OxyCODONE Immed Rel 5 MG TABLET PO SCH ×2 (17:45→23:49)
[2018-01-24] MEDS: traZODone 50 MG TABLET GTUBE SCH (19:59)
[2018-01-25] MEDS: *HR* OxyCODONE Immed Rel 5 MG TABLET PO PRN (03:16)
[2018-01-25] MEDS: Ipratropium/Albuterol Neb 3 ML IH SCH ×6 (04:00→23:31)
[2018-01-25] MEDS: 0.9 % Sodium Chloride 1,000 ML IVC SCH (04:06)
[2018-01-25 05:28] LABS: Basophils % 0.1 %; Eosinophils # 0.1 K/mcL (0.0-0.6); Eosinophils % 0.9 %; Hematocrit 30.6 % (37.5-50.1); Hemoglobin 9.3 g/dL (12.9-16.9); Immature Granulocytes % 1.6 % (0-4); Lymphocytes # 0.5 K/mcL (0.6-4.6); Lymphocytes % 6.2 %; Mean Corpuscular HGB Conc 30.4 g/dL (31.6-35.5); Mean Corpuscular Hemoglobin 24.5 pg (28.0-33.3); Mean Corpuscular Volume 80.7 fL (83.0-100.0); Mean Platelet Volume 9.1 fL (9.4-12.4); Monocytes # 0.6 K/mcL (0.0-1.3); Monocytes % 6.5 %; Neutrophils # 7.3 K/mcL (1.6-8.9); Platelet Count 189 K/mcL (140-400); Red Blood Count 3.79 M/mcL (4.19-5.50); Red Cell Distribution Width 16.4 % (11.5-14.5); Segmented Neutrophils % 84.7 %
[2018-01-25] MEDS: *HR* OxyCODONE Immed Rel 5 MG TABLET PO SCH ×4 (05:41→23:22)
[2018-01-25 05:42] LABS: BUN/Creatinine Ratio 25 (6-26); Blood Urea Nitrogen 18 mg/dL (8-23); Calcium 8.6 mg/dL (8.6-10.3); Carbon Dioxide 30 mEq/L (23-29); Chloride 100 mEq/L (98-107); Glucose 104 mg/dL (70-105); Osmolality,Calculated 280 (280-300); Potassium 4.3 mEq/L (3.5-5.1); Sodium 134 mEq/L (136-145); eGFR For Non-African Americans > 60 (> 60)
[2018-01-25] MEDS: *HR* Heparin 5,000 UNIT/ML VIAL SQ SCH ×2 (06:01→17:55)
[2018-01-25] MEDS: Pantoprazole 40 MG VIAL IVP SCH (06:01)
[2018-01-25] MEDS: Famotidine 20 MG/2 ML VIAL IVP SCH (06:02)
[2018-01-25 06:48] LABS: Hepatitis A Antibody IgM Nonreactive (Nonreactive); Hepatitis B Core IgM Nonreactive (Nonreactive); Hepatitis B Surface Antigen Nonreactive (Nonreactive); Hepatitis C Virus Antibody Nonreactive (Nonreactive)
[2018-01-25] MEDS: Budesonide/Formoterol 160/4.5 1 PUFF INH IH SCH ×2 (08:34→19:45)
[2018-01-25] MEDS: Gabapentin 100 MG CAPSULE GTUBE SCH ×3 (09:47→20:10)
[2018-01-25] MEDS: Magic Mouthwash 10 ML UD Cup PO SCH ×3 (09:47→15:05)
[2018-01-25] MEDS: Docusate Oral Soln 100 MG/10 ML UDC GTUBE SCH ×2 (09:47→20:10)
[2018-01-25] MEDS: Thiamine (B-1) 100 MG TABLET PO SCH (09:48)
[2018-01-25] MEDS: FLUoxetine 20 MG CAPSULE PO SCH (09:48)
--- NOTE | 2018-01-25 09:55 | Internal Med Progress Note ---
Hospitalist Progress Note - Encounter Date of Encounter: 01/25/18 Time of Encounter: 09:53 - Subjective Interval History: Patient presented with weight loss, weakness, fatigue, dysphagia, mucocyst status and failure to thrive. Identified to have a moderate protein-calorie malnutrition. Being treated with PT/OT and increased nutritional support. No acute changes overnight, continues to have excess weakness and fatigue. Oncology seeing in consultation reports that patient's condition likely caused by radiation toxicity. Discussed plan of care with patient. He verbalizes agreement with plan of care. - Exam Vitals: Temp Pulse Resp BP Pulse Ox 98.4 F 79 16 105/50 96 01/25/18 06:50 01/25/18 06:50 01/25/18 08:37 01/25/18 06:50 01/25/18 08:37 Exam: PHYSICAL EXAMINATION: GENERAL: The patient is an ill-appearing malnourished, anorexic elderly male who appears very weak and frail. He is alert and oriented 3. HEENT: Head is normocephalic and atraumatic. Extraocular muscles are intact. Pupils are equal, round, and reactive to light and accommodation. Muffled voice which is chronic as he had a neck cancer radiation treatment; dry mucous membranes with thick coating on tongue and roof of mouth, edentulous NECK: Supple. No carotid bruits. No lymphadenopathy or thyromegaly. LUNGS: Clear/diminished to auscultation B/L AP and L. HEART: Regular rate and rhythm, S1, S2 without murmurs, rubs or gallobs. ABDOMEN: Soft, nontender, and nondistended. Positive bowel sounds. No hepatosplenomegaly was noted. EXTREMITIES: Without any cyanosis, clubbing, rash, lesions or edema. NEUROLOGIC: Without facial droop or slurred speech PSYCHIATRIC: Appropriate affect, denies SI/HI, without agitation or anxiety SKIN: No ulceration or induration present. - Assessment and Plan (1) Cancer of soft palate Current Visit: Yes Status: Chronic Assessment and Plan: Cancer of soft palate, finished XRT 11/27/17. Has not had surgery or chemotherapy Has had worsening dysphagia over the last 4 months as well as weight loss; likely due to radiation toxicity Consult oncology; thank you for your recommendations Nutrition consult; recommend to increase caloric content of tube feeding Speech therapy consult; recommended nectar thick liquids only and tube feedings; no food by mouth Patient has had increase in dyspnea over the last [address] imaging in early December reveals pulmonary nodules; that time concern for infectious process versus metastatic process Elevated d-dimer throughout the stay as well as dyspnea CTA chest obtained with findings of increasing amount of pulmonary nodules and increase in size, these nodules are noncalcified, consider metastatic process Further recommendations from oncology pending 01/25/18--no acute change in patient condition. Participating in physical therapy at time of my assessment. Oncology has seen in consultation, thank you and appreciate recommendations. The patient is declining condition believed to be caused by radiation toxicity as he is presenting with toxic side effects including mucositis is, dysphagia, weight loss, weakness, and moderate protein- calorie malnutrition. There are some concerns regarding CT imaging revealing multiple pulmonary nodules concerning for metastatic disease. Plan is continue supportive treatment with increased nutritional intake and PT/OT. Oncology has added Diflucan 3 days to cover antifungal component of odynophagia, continue Magic mouthwash as previously prescribed. Patient and daughters are aware of plan of care and wish to discharge to ECF for additional physical therapy. Patient is to continue with outpatient follow-up appointment for PET scan in February along with follow-up with Dr. Ponce. Patient remains interested in pursuing treatment options including systemic therapy/immunotherapy depending on PET imaging results. environmental services worker following, plan to DC to [facility] when approved. Likely will not go to Saturday due to waiting insurance authorization. The patient is not a safe candidate for discharge home at this time given his extreme frail state as discharge home would likely lead to further morbidity and/or . (2) Oropharyngeal dysphagia Current Visit: No Status: Acute Assessment and Plan: MBS indicates full penetration of thin liquids Continue nectar thick liquids only, no food by mouth Continue tube feeds; increase calorie per tube feed as per nutrition recommendations (3) Dyspnea Current Visit: Yes Status: Acute Assessment and Plan: Continue treating for COPD Discontinuation of Levaquin as patient was started on Diflucan per oncology He does not appear to have an acute lower respiratory infection CTA chest negative for PE,, pleural effusions or opacifications Patient remained symptomatically stable and afebrile without leukocytosis (4) Pneumonia Current Visit: Yes Status: Ruled-out Assessment and Plan: As above (5) Pulmonary nodules Current Visit: Yes Status: Acute Assessment and Plan: As above (6) Moderate protein-calorie malnutrition Current Visit: No Status: Acute Assessment and Plan: Continue with increased caloric intake with concentrated PEG tube feedings (7) Failure to thrive Current Visit: Yes Status: Acute Assessment and Plan: As above (8) Dehydration Current Visit: Yes Status: Acute Assessment and Plan: Dehydration improving IV fluids discontinued Continue free water feedings (9) Hyponatremia Current Visit: Yes Status: Acute Assessment and Plan: Improving serum sodium 134 this morning monitor labs daily DVT Prophylaxis: SC Heparin - Time Spent with Patient Total time spent is greater than 50% in coordination of care (as documented) at patient's floor/unit and/or counseling patient: less than 15 minutes Plan of Care Discussed with: patient Internal Medicine: Result - Labs CBC & Chem 7: 01/25/18 05:01 01/25/18 05:01 Labs: Short CBC 01/25/18 Range/Units 05:01 WBC 8.6 (4.3-11.1) K/mcL Hgb 9.3 L (12.9-16.9) g/dL Hct 30.6 L (37.5-50.1) % Plt Count 189 (140-400) K/mcL Neutrophils # 7.3 (1.6-8.9) K/mcL BMP 01/25/18 05:01 Sodium 134 L Potassium 4.3 Chloride 100 Carbon Dioxide 30 H BUN 18 Creatinine 0.72 Glucose 104 Calcium 8.6 - ABG Interpretation ABG results: PT/INR, D-dimer PT 12.5 Seconds (9.4-12.1) H 01/22/18 20:26 Consult Discharge Plan - Plan [facility]errals: [facility] [Primary Care Provider] - __ (3) Dyspnea Qualifiers: Dyspnea type: shortness of breath Qualified Code(s): R06.02 - Shortness of breath; R06.00 - Dyspnea, unspecified; R06.01 - Orthopnea (4) Pneumonia Qualifiers: Pneumonia type: due to unspecified organism Laterality: unspecified laterality Lung location: unspecified part of lung Qualified Code(s): J18.9 - Pneumonia, unspecified organism (7) Failure to thrive Qualifiers: Failure to thrive age range: in adult Qualified Code(s): R62.7 - Adult failure to thrive
[2018-01-25] MEDS: Fluconazole 40 MG/ML UDC PO SCH (10:32)
[2018-01-25] MEDS: traZODone 50 MG TABLET GTUBE SCH (20:10)
[2018-01-26] MEDS: Ipratropium/Albuterol Neb 3 ML IH SCH ×6 (04:16→23:59)
[2018-01-26 04:24] LABS: Basophils % 0.1 %; Eosinophils # 0.1 K/mcL (0.0-0.6); Eosinophils % 1.5 %; Hematocrit 29.3 % (37.5-50.1); Hemoglobin 9.2 g/dL (12.9-16.9); Immature Granulocytes % 0.5 % (0-4); Lymphocytes # 0.6 K/mcL (0.6-4.6); Lymphocytes % 6.7 %; Mean Corpuscular HGB Conc 31.4 g/dL (31.6-35.5); Mean Corpuscular Hemoglobin 24.8 pg (28.0-33.3); Mean Platelet Volume 9.5 fL (9.4-12.4); Monocytes # 0.5 K/mcL (0.0-1.3); Neutrophils # 7.4 K/mcL (1.6-8.9); Platelet Count 208 K/mcL (140-400); Red Blood Count 3.71 M/mcL (4.19-5.50); Red Cell Distribution Width 16.5 % (11.5-14.5); Segmented Neutrophils % 85.2 %
[2018-01-26 04:46] LABS: BUN/Creatinine Ratio 31 (6-26); Blood Urea Nitrogen 22 mg/dL (8-23); Calcium 8.9 mg/dL (8.6-10.3); Carbon Dioxide 29 mEq/L (23-29); Chloride 98 mEq/L (98-107); Glucose 123 mg/dL (70-105); Osmolality,Calculated 281 (280-300); Potassium 4.7 mEq/L (3.5-5.1); Sodium 133 mEq/L (136-145); eGFR For Non-African Americans > 60 (> 60)
[2018-01-26] MEDS: *HR* Heparin 5,000 UNIT/ML VIAL SQ SCH ×2 (05:07→18:25)
[2018-01-26] MEDS ORDERED: Ketorolac 30 MG/ML VIAL IM ONE (05:40)
[2018-01-26] MEDS: *HR* OxyCODONE Immed Rel 5 MG TABLET PO SCH ×3 (06:41→18:25)
[2018-01-26] MEDS: Budesonide/Formoterol 160/4.5 1 PUFF INH IH SCH ×2 (07:58→21:02)
--- NOTE | 2018-01-26 08:54 | Internal Med Progress Note ---
Hospitalist Progress Note - Encounter Date of Encounter: 01/26/18 Time of Encounter: 11:08 - Subjective Interval History: Patient presented with weight loss, weakness, fatigue, dysphagia, mucocyst status and failure to thrive. Has a moderate protein-calorie malnutrition. Being treated with PT/OT and increased nutritional support. Seen and examined at bedside today, no acute changes overnight, continues to have excess weakness and fatigue. Oncology seeing in consultation reports that patient's condition likely caused by radiation toxicity. Discussed plan of care with patient. He verbalizes agreement with plan of care. - Exam Vitals: Temp Pulse Resp BP Pulse Ox 98.8 F 71 12 110/69 98 01/26/18 07:17 01/26/18 07:17 01/26/18 07:50 01/26/18 07:17 01/26/18 07:50 Exam: PHYSICAL EXAMINATION: GENERAL: The patient is an ill-appearing malnourished, anorexic elderly male who appears very weak and frail. He is alert and oriented 3. HEENT: Head is normocephalic and atraumatic. Extraocular muscles are intact. Pupils are equal, round, and reactive to light and accommodation. Muffled voice which is chronic as he had a neck cancer radiation treatment; dry mucous membranes with thick coating on tongue and roof of mouth, edentulous NECK: Supple. No carotid bruits. No lymphadenopathy or thyromegaly. LUNGS: Clear/diminished to auscultation B/L AP and L. HEART: Regular rate and rhythm, S1, S2 without murmurs, rubs or gallops. ABDOMEN: Soft, nontender, and nondistended. Positive bowel sounds. No hepatosplenomegaly was noted. EXTREMITIES: Without any cyanosis, clubbing, rash, lesions or edema. NEUROLOGIC: Without facial droop or slurred speech PSYCHIATRIC: Appropriate affect, denies SI/HI, without agitation or anxiety SKIN: No rash, lesions, or ulcerations present - Assessment and Plan (1) Cancer of soft palate Current Visit: Yes Status: Chronic Assessment and Plan: Cancer of soft palate, finished XRT 11/27/17. Has not had surgery or chemotherapy Has had worsening dysphagia over the last 4 months as well as weight loss; abraham munroe due to radiation toxicity Consult oncology; thank you for your recommendations Nutrition consult; recommend to increase caloric content of tube feeding Speech therapy consult; recommended nectar thick liquids only and tube feedings; no food by mouth Patient has had increase in dyspnea over the last [address] imaging in early December reveals pulmonary nodules; that time concern for i nfectious process versus metastatic process Elevated d-dimer throughout the stay as well as dyspnea CTA chest obtained with findings of increasing amount of pulmonary nodules and increase in size, these nodules are noncalcified, consider metastatic process Further recommendations from oncology pending 01/26/18--Clinically remain stable. Weakness and fatigue persists in the setting of radiation toxicity. Continue to treat malnutrition with PEG bolus feeding. Continue with PT/OT; F/u with oncology to have PET in Feb. Will d/c to ECF when approved for PT/OT. Consider systemic treatment with immunotherapy depending on results of PET in Feb. (2) Oropharyngeal dysphagia Current Visit: No Status: Acute Assessment and Plan: MBS indicates full penetration of thin liquids Continue nectar thick liquids only, no food by mouth Continue tube feeds; increase calorie per tube feed as per nutrition sonia mmendations (3) Dyspnea Current Visit: Yes Status: Acute Assessment and Plan: Continue treating for COPD Discontinuation of Levaquin as patient was started on Diflucan per oncology He does not appear to have an acute lower respiratory infection CTA chest negative for PE,, pleural effusions or opacifications Patient remained symptomatically stable and afebrile without leukocytosis (4) Pneumonia Current Visit: Yes Status: Ruled-out Assessment and Plan: ruled out (5) Pulmonary nodules Current Visit: Yes Status: Acute Assessment and Plan: As above (6) Moderate protein-calorie malnutrition Current Visit: No Status: Acute Assessment and Plan: Continue with increased caloric intake with concentrated PEG tube feedings monitor weight (7) Failure to thrive Current Visit: Yes Status: Acute Assessment and Plan: As above (8) Dehydration Current Visit: Yes Status: Acute Assessment and Plan: Dehydration improving Continue free water feedings (9) Hyponatremia Current Visit: Yes Status: Acute Assessment and Plan: Improving serum sodium 133 this morning monitor labs daily DVT Prophylaxis: Continue SC Heparin - Time Spent with Patient Total time spent is greater than 50% in coordination of care (as documented) at patient's floor/unit and/or counseling patient: less than 15 minutes Plan of Care Discussed with: patient Internal Medicine: Result - Labs CBC & Chem 7: 01/26/18 03:24 01/26/18 03:24 Labs: Short CBC 01/26/18 Range/Units 03:24 WBC 8.7 (4.3-11.1) K/mcL Hgb 9.2 L (12.9-16.9) g/dL Hct 29.3 L (37.5-50.1) % Plt Count 208 (140-400) K/mcL Neutrophils # 7.4 (1.6-8.9) K/mcL BMP 01/26/18 03:24 Sodium 133 L Potassium 4.7 Chloride 98 Carbon Dioxide 29 BUN 22 Creatinine 0.72 Glucose 123 H Calcium 8.9 - ABG Interpretation ABG results: PT/INR, D-dimer PT 12.5 Seconds (9.4-12.1) H 01/22/18 20:26 Consult Discharge Plan - Plan [facility]errals: [facility] [Primary Care Provider] - (3) Dyspnea Qualifiers: Dyspnea type: shortness of breath Qualified Code(s): R06.02 - Shortness of breath; R06.00 - Dyspnea, unspecified; R06.01 - Orthopnea (4) Pneumonia Qualifiers: Pneumonia type: due to unspecified organism Laterality: unspecified laterality Lung location: unspecified part of lung Qualified Code(s): J18.9 - Pneumonia, unspecified organism (7) Failure to thrive Qualifiers: Failure to thrive age range: in adult Qualified Code(s): R62.7 - Adult failure to thrive
[2018-01-26] MEDS: Magic Mouthwash 10 ML UD Cup PO SCH ×3 (11:46→16:57)
[2018-01-26] MEDS: Gabapentin 100 MG CAPSULE GTUBE SCH ×3 (11:46→21:24)
[2018-01-26] MEDS: Thiamine (B-1) 100 MG TABLET PO SCH (11:47)
[2018-01-26] MEDS: FLUoxetine 20 MG CAPSULE PO SCH (11:47)
[2018-01-26] MEDS: Docusate Oral Soln 100 MG/10 ML UDC GTUBE SCH ×2 (11:47→21:24)
[2018-01-26] MEDS: Fluconazole 40 MG/ML UDC PO SCH (15:19)
[2018-01-26] MEDS: traZODone 50 MG TABLET GTUBE SCH (21:24)
[2018-01-27] MEDS: *HR* OxyCODONE Immed Rel 5 MG TABLET PO SCH ×3 (01:18→11:39)
[2018-01-27] MEDS: Ipratropium/Albuterol Neb 3 ML IH SCH ×4 (04:25→16:02)
[2018-01-27] MEDS: *HR* Heparin 5,000 UNIT/ML VIAL SQ SCH (05:00)
[2018-01-27] MEDS: Budesonide/Formoterol 160/4.5 1 PUFF INH IH SCH (08:17)
[2018-01-27] MEDS: Gabapentin 100 MG CAPSULE GTUBE SCH ×2 (08:33→14:03)
[2018-01-27] MEDS: Docusate Oral Soln 100 MG/10 ML UDC GTUBE SCH (08:33)
[2018-01-27] MEDS: Magic Mouthwash 10 ML UD Cup PO SCH ×3 (08:33→16:30)
[2018-01-27] MEDS: *HR* OxyCODONE Immed Rel 5 MG TABLET PO PRN ×2 (08:34→16:36)
[2018-01-27] MEDS: Thiamine (B-1) 100 MG TABLET PO SCH (08:34)
[2018-01-27] MEDS: FLUoxetine 20 MG CAPSULE PO SCH (08:34)
--- NOTE | 2018-01-27 09:46 | Palliative Progress Note ---
<Ida Bueno - Last Filed: 01/27/18 14:03> Date of Encounter: 01/27/18 Time of Encounter: 09:25 - Assessment and plan (1) Goals of care, counseling/discussion Current Visit: Yes Status: Acute Assessment and plan: Goals of care are clear. Patient is aware of the terminal condition and would like to continue pursuing comfort care and not receive any further treatment for his cancer. He would like to continue pain management. Lived at home alone prior to admission but is unable to care for himself. Awaiting placement. 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 (2) Cancer associated pain Current Visit: Yes Status: Acute Assessment and plan: Patient noted pain of 9/10 when he was seen this morning. His pain was located to the anterior aspect of his neck. He noted his pain was well controlled until about 1 hour prior to me seeing him. He noted the feeding tube is blocked and preventing him from receiving his medications. Spoke with nursing and she noted she has orders for unblocking the tube and should be able to give him his pain medications thereafter. (3) Cancer of soft palate Current Visit: Yes Status: Acute Assessment and plan: Patient refusing further cancer workup or treatment. He received 3 days of fluconazole for the odynophagia and had speech evaluation today which noted he is now able to tolerate thin liquid without aspiration. He is also currently receiving magic mouthwash. (4) Oropharyngeal dysphagia Current Visit: No Status: Acute Assessment and plan: Has a speech evaluation today and there was no aspiraton noted with thin liquid. He is able to tolerate thin liquids. Continue diet as tolerated (5) Failure to thrive Current Visit: Yes Status: Acute Assessment and plan: Barium swallow evaluation was positive for aspiration. Pt recommended for thickened fluids only orally but has poor appetite Remainder of food and nutrition per G tube Caloric intake increased per turbine subassembler. - Time Spent With Patient Total time spent is greater than 50% in coordination of care (as documented) at patient's floor/unit and/or counseling patient: - Subjective Interval history: Mr. Hardy was seen at bedside this morning. He was awake and alert. He complained of ongoing pain in his anterior neck as well as throat. He noted his feeding tube is clogged and is unable to get any of his medications through it. The pain is rated as 9/10 and it has just worsened in the past hour. He is unable to have any oral intake and noted he does not have any desire for it either. He denied fever, chills, nausea, emesis, shortness of breath or chest pain. - Constitutional Vitals: Abnormal lab results RBC 3.71 M/mcL (4.19-5.50) L 01/26/18 03:24 Hgb 9.2 g/dL (12.9-16.9) L 01/26/18 03:24 Hct 29.3 % (37.5-50.1) L 01/26/18 03:24 MCV 79.0 fL (83.0-100.0) L 01/26/18 03:24 MCH 24.8 pg (28.0-33.3) L 01/26/18 03:24 MCHC 31.4 g/dL (31.6-35.5) L 01/26/18 03:24 RDW 16.5 % (11.5-14.5) H 01/26/18 03:24 PT 12.5 Seconds (9.4-12.1) H 01/22/18 20:26 Sodium 133 mEq/L (136-145) L 01/26/18 03:24 BUN/Creatinine Ratio 31 (6-26) H 01/26/18 03:24 Glucose 123 mg/dL (70-105) H 01/26/18 03:24 AST 41 Units/L (13-39) H 01/23/18 01:51 ALT 56 Units/L (7-52) H 01/23/18 01:51 Serum Total Protein 5.5 g/dL (6.4-8.9) L 01/23/18 01:51 Albumin 2.8 g/dL (3.5-5.7) L 01/23/18 01:51 Albumin/Globulin Ratio 1.0 (1.1-2.2) L 01/23/18 01:51 General appearance: Present: cooperative, no acute distress - Head Head exam: Present: atraumatic, normocephalic - Eye Eye exam: Present: EOMI, normal appearance, sclera anicteric - ENT ENT exam: Present: mucous membranes moist - Neck Neck exam: Present: full ROM, normal inspection - Respiratory Respiratory exam: Present: CTAB. Absent: rhonchi, stridor, wheezes - Cardiovascular Cardiovascular exam: Present: RRR. Absent: +S1, +S2 - GI/Abdominal GI/Abdominal exam: Present: normal bowel sounds, soft. Absent: distended, guarding - Extremities Exam Extremities exam: Present: normal inspection. Absent: calf tenderness - Psychiatric Psychiatric exam: Present: normal affect, normal mood - Skin Skin exam: Present: dry, intact, warm Palliative Quality Palliative Quality: Screen for Code Status: Yes, Screen for Goals of Care: Yes, Screen for Pain: Yes, If Pain Regimen Started, Initiate Bowel Regimen: Yes, Screen for Nausea/Vomitting: Yes Code Status: 01/22/18 20:06 Resuscitation Status: Active [RES] Routine Comment: Resuscitation Status: Full Code 01/24/18 14:55 Resuscitation Status: Active [RES] Routine Comment: Resuscitation Status: DNR-Comfort Care - Labs CBC & Chem 7: 01/26/18 03:24 01/26/18 03:24 - Impressions Impressions KUB X-Ray 01/26/18 06:29 IMPRESSION: Gastrostomy tube projects over the left upper quadrant the abdomen. Dense contrast throughout the colon. Colonic diverticulosis. 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 (4) Oropharyngeal dysphagia Current Visit: No Status: Acute (5) Failure to thrive Current Visit: Yes Status: Acute Qualifiers: Failure to thrive age range: in adult Qualified Code(s): R62.7 - Adult failure to thrive - Time Spent With Patient Total time spent is greater than 50% in coordination of care (as documented) at patient's floor/unit and/or counseling patient: - Constitutional Vitals: Abnormal lab results RBC 3.71 M/mcL (4.19-5.50) L 01/26/18 03:24 Hgb 9.2 g/dL (12.9-16.9) L 01/26/18 03:24 Hct 29.3 % (37.5-50.1) L 01/26/18 03:24 MCV 79.0 fL (83.0-100.0) L 01/26/18 03:24 MCH 24.8 pg (28.0-33.3) L 01/26/18 03:24 MCHC 31.4 g/dL (31.6-35.5) L 01/26/18 03:24 RDW 16.5 % (11.5-14.5) H 01/26/18 03:24 PT 12.5 Seconds (9.4-12.1) H 01/22/18 20:26 Sodium 133 mEq/L (136-145) L 01/26/18 03:24 BUN/Creatinine Ratio 31 (6-26) H 01/26/18 03:24 Glucose 123 mg/dL (70-105) H 01/26/18 03:24 AST 41 Units/L (13-39) H 01/23/18 01:51 ALT 56 Units/L (7-52) H 01/23/18 01:51 Serum Total Protein 5.5 g/dL (6.4-8.9) L 01/23/18 01:51 Albumin 2.8 g/dL (3.5-5.7) L 01/23/18 01:51 Albumin/Globulin Ratio 1.0 (1.1-2.2) L 01/23/18 01:51 - Attending Attestation I performed a history and physical examination of the patient and discussed his management with the resident. I reviewed the residents note and agree with the documented findings and plan of care. except the following. Cancer related pain: pt had missed some pain medication doses due to malfunctioning PEG tube. He received 75mg mophine equivalent in 24 hrs. will start Fentanyl patch 25mg TID, with Oxycodone 10 mg q4hrs prn. Patch can be titrated up by the next dose if prn requirement remain more than 4 doses daily. Continue Gabapentin constipation: pt stated he did not have a BM in 5 days. Also he usually responds better to oral laxatives than to enema. will give Miralax 1 dose, will repeat tomorrow if no BM. continue Senna and Docusate Goals of care: discussed with Oncology CLASSICS PROFESSOR Freda, pt may be considering further work up, and may be amenable to further treatment if it does not include radiations. Discussed with pt, he states he has not decided yet weather to follow up with oncology, he would like to discuss with his family and see how he does in rehab. Palliative Quality Code Status: 01/22/18 20:06 Resuscitation Status: Active [RES] Routine Comment: Resuscitation Status: Full Code 01/24/18 14:55 Resuscitation Status: Active [RES] Routine Comment: Resuscitation Status: DNR-Comfort Care - Labs CBC & Chem 7: 01/26/18 03:24 01/26/18 03:24 - ABG Interpretation ABG results: PT/INR, D-dimer PT 12.5 Seconds (9.4-12.1) H 01/22/18 20:26
[2018-01-27] MEDS: Fluconazole 40 MG/ML UDC PO SCH (10:21)
[2018-01-27] MEDS ORDERED: *HR* FentaNYL PATCH 25 MCG PATCH TD SCH (14:30)
--- NOTE | 2018-01-27 15:07 | Discharge Summary ---
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 Has not had surgery or chemotherapy Has had worsening dysphagia over the last 4 months as well as weight loss; abraham ludwig due to radiation toxicity Consult oncology; thank you for your recommendations Nutrition consult; recommend to increase caloric content of tube feeding Speech therapy consult; recommended nectar thick liquids only and tube feedings; no food by mouth Patient has had increase in dyspnea over the last [address] imaging in early December reveals pulmonary nodules; that time concern for i nfectious process versus metastatic process Elevated d-dimer throughout the stay as well as dyspnea CTA chest obtained with findings of increasing amount of pulmonary nodules and increase in size, these nodules are noncalcified, consider metastatic process Further recommendations from oncology pending 01/26/18--Clinically remain stable. Weakness and fatigue persists in the setting of radiation toxicity. Continue to treat malnutrition with PEG bolus feeding. Continue with PT/OT; F/u with oncology to have PET in Feb. Seen by PT/OT and Will d/c to ECF. Pt accepted to [facility]. Per palliative consider systemic treatment with immunotherapy depending on results of PET in Feb. (2) Oropharyngeal dysphagia Priority: Primary Status: Acute Assessment and Plan: MBS indicates full penetration of thin liquids Continue nectar thick liquids only, no food by mouth Continue tube feeds; increase calorie per tube feed as per nutrition recommendations (3) Moderate protein-calorie malnutrition Priority: Secondary Status: Acute Assessment and Plan: Pt had PEG tube blockage today which was resolved following Creon x 2 and Na HCO3. Continue with increased caloric intake with concentrated PEG tube feedings monitor weight. KUB XR/XR KUB IMPRESSION: Gastrostomy tube projects over the left upper quadrant the abdomen. Dense contrast throughout the colon. Colonic diverticulosis. (4) Dyspnea Priority: Secondary Status: Acute Assessment and Plan: Continue treating for COPD Discontinuation of Levaquin as patient was started on Diflucan per oncology He does not appear to have an acute lower respiratory infection CTA chest negative for PE,, pleural effusions or opacifications Patient remained symptomatically stable and afebrile without leukocytosis Qualifiers: Dyspnea type: shortness of breath Qualified Code(s): R06.02 - Shortness of breath; R06.00 - Dyspnea, unspecified; R06.01 - Orthopnea (5) Pneumonia Priority: Primary Status: Ruled-out Assessment and Plan: ruled out Qualifiers: Pneumonia type: due to unspecified organism Laterality: unspecified lateral ity Lung location: unspecified part of lung Qualified Code(s): J18.9 - Pneumonia, unspecified organism (6) Pulmonary nodules Priority: Secondary Status: Acute Assessment and Plan: As above (7) Failure to thrive Priority: Primary Status: Acute Assessment and Plan: due to pt's chronic illness. Prognosis poor. Qualifiers: Failure to thrive age range: in adult Qualified Code(s): R62.7 - Adult failure to thrive (8) Dehydration Priority: Primary Status: Acute Assessment and Plan: Dehydration improving Continue free water feedings (9) Hyponatremia Priority: Secondary Status: Acute Assessment and Plan: Improving serum sodium 01/26/2018. 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 monitor labs daily Hospital course: Mr. Hardy is a 78 year old male - Time Spent with Patient Total time spent providing and/or coordinating discharge services: - Discharge Medications Home Medications: FLUoxetine HCl [Fluoxetine HCl] 40 mg PO DAILY 09/12/17 [History] traZODone [TraZODone] 150 mg PO HS 09/12/17 [History] Omeprazole [PriLOSEC] 40 mg PO DAILY #30 capsule. 12/05/17 [Rx] Gabapentin [Neurontin] 100 mg PO TID 30 Days #90 capsule 01/16/18 [Rx] Albuterol Sulfate [Proair Hfa] 2 puff IH Q4H PRN 01/22/18 [History] Alendronate Sodium [Fosamax] 70 mg PO QWEEK 01/22/18 [History] Atorvastatin [Lipitor] 40 mg PO HS 01/22/18 [History] Budesonide/Formoterol 160/4.5 [Symbicort 160/4.5] 2 puff IH BIDR 01/22/18 [History] Docusate Sodium [Dok] 100 mg PO BID 01/22/18 [History] Ranitidine HCl [Zantac] 300 mg PO DAILY 01/22/18 [History] Allergies/Adverse Reactions: Allergy/AdvReac Type Severity Reaction Status Date / Time No Known Allergies Allergy Verified 01/22/18 14:07 Date of admission: 01/24/18 12:36 [facility] physician[facility] Consults: 01/22/18 20:06 Consult to Oncology [CONS] Routine Consulting Provider: [facility] Reason for Consult: Head and neck cancer; FTT; weight loss Call Completed: No 01/22/18 20:10 Consult to Speech Therapy [CONS] Routine Comment: Evaluate, develop and implement POC Reason for Consult: dysphagia; head and neck cancer; weight loss Call Completed: No 01/23/18 09:56 dietary consult [Consult to Nutrition] [CONS] Routine Comment: Consulting Provider: NUTRITION Reason for Dietary Consult: Tube Feed Start & Manage 01/23/18 11:46 Consult to Palliative Care [CONS] Routine Comment: Consulting Provider: Palliative [facility] Jody Reason for Consult: suspect metastatic cancer Time Notified: 11:47 Call Completed: Yes 01/23/18 15:32 Consult to Occupational Therapy [CONS] Routine Comment: Evaluate, develop and implement POC Reason for Consult: weakness Does patient have active BEDREST order?: No Is patient medically & hemodynamically stable?: Yes Consult to Physical Therapy [CONS] Routine Comment: Evaluate, develop and implement POC Reason for Consult: weakness and falls Does patient have active BEDREST order?: No Is patient medically & hemodynamically stable?: Yes Discharging clinician: Natacha Nunn Anticipated date of discharge: 01/27/18 - Constitutional Vitals: Temp Pulse Resp BP Pulse Ox 98.5 F 62 18 127/62 97 01/27/18 10:43 01/27/18 10:43 01/27/18 11:06 01/27/18 10:43 01/27/18 11:06 General appearance: Present: cooperative, A&O X 3, pleasant, no acute distress, loss of weight, answers questions appropriately Exam: PHYSICAL EXAMINATION: GENERAL: The patient is an ill-appearing malnourished, anorexic elderly male who appears very weak and frail. He is alert and oriented 3. HEENT: Head is normocephalic and atraumatic. Extraocular muscles are intact. Pupils are equal, round, and reactive to light and accommodation. Muffled voice which is chronic as he had a neck cancer radiation treatment; dry mucous mem branes with thick coating on tongue and roof of mouth, edentulous NECK: Supple. No carotid bruits. No lymphadenopathy or thyromegaly. LUNGS: Clear/diminished to auscultation B/L AP and L. HEART: Regular rate and rhythm, S1, S2 without murmurs, rubs or gallops. ABDOMEN: Soft, nontender, and nondistended. Positive bowel sounds. No hepatosplenomegaly was noted. EXTREMITIES: Without any cyanosis, clubbing, rash, lesions or edema. NEUROLOGIC: Without facial droop or slurred speech PSYCHIATRIC: Appropriate affect, denies SI/HI, without agitation or anxiety SKIN: No rash, lesions, or ulcerations present - Patient Status Disposition: Transfer LTC Condition: Serious Overall status at discharge: patient is not back to baseline - Discharge Instructions Follow [facility] With: [facility] [Primary Care Provider] - - Diet and Activity Activity: increase activity as tolerated Diet: advance to your usual diet, other
--- NOTE | 2018-01-27 15:44 | Physician Discharge Referral ---
ExtendedCare Referral Info Provider in Charge after Transfer: PCP Institutional Level of Care: Skilled - Diagnosis (1) Cancer of soft palate Status: Chronic (2) Oropharyngeal dysphagia Status: Acute (3) Moderate protein-calorie malnutrition Status: Acute (4) Dyspnea Status: Acute (5) Pneumonia Status: Ruled-out (6) Pulmonary nodules Status: Acute (7) Failure to thrive Status: Acute (8) Dehydration Status: Acute (9) Hyponatremia Status: Acute - Transfer Medications Prescriptions: OxyCODONE Immed Rel [Roxicodone 5 MG] 10 mg PO Q4HR PRN 7 Days #30 tablet PRN Reason: SEVERE PAIN Home Medications: FLUoxetine HCl [Fluoxetine HCl] 40 mg PO DAILY 09/12/17 [History] traZODone [TraZODone] 150 mg PO HS 09/12/17 [History] Omeprazole [PriLOSEC] 40 mg PO DAILY #30 capsule. 12/05/17 [Rx] Gabapentin [Neurontin] 100 mg PO TID 30 Days #90 capsule 01/16/18 [Rx] Albuterol Sulfate [Proair Hfa] 2 puff IH Q4H PRN 01/22/18 [History] Alendronate Sodium [Fosamax] 70 mg PO QWEEK 01/22/18 [History] Atorvastatin [Lipitor] 40 mg PO HS 01/22/18 [History] Budesonide/Formoterol 160/4.5 [Symbicort 160/4.5] 2 puff IH BIDR 01/22/18 [History] Docusate Sodium [Dok] 100 mg PO BID 01/22/18 [History] Ranitidine HCl [Zantac] 300 mg PO DAILY 01/22/18 [History] Fluconazole [Diflucan] 200 mg PO DAILY udc 01/27/18 [Rx] OxyCODONE Immed Rel [Roxicodone 5 MG] 10 mg PO Q4HR PRN 7 Days #30 tablet 01/27/18 [Rx] Allergies/Adverse Reactions: Allergy/AdvReac Type Severity Reaction Status Date / Time No Known Allergies Allergy Verified 01/22/18 14:07 - Respiratory Orders Smoking Cessation: Smoking cessation has been advised. For more information, call the [employer] Tobacco Quit Line at 0-999-HTXQ-NOW. - Advance Directives Code Status: DNR-Comfort Care - Mobility Orders Other - Rehabiliation Orders Rehab Potential: Fair Rehab Orders: Evaluation for Physical Therapy, Evaluation for Occupational Therapy - Diet Orders House Supplement per Dietary: See DC note regarding diet CERTIFICATION: I certify that the transfer of the above named patient to an Extended Care Facility is necessary for the continuing treatment of the diagnosis listed. The above information is true and accurate reflection of patient's current condition. Confidential - Redisclosure prohibited without a patient's written consent.
--- NOTE | 2018-01-27 16:00 | Oncology Inp Progress Note ---
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 CT imaging was negative for PE but did reveal pulmonary nodules which have been increasing in size, concerning for metastatic disease. Plan: Continue with supportive treatment (as below) and pain management per palliative services We again discussed goals of care with patient and patients daughter. His treatment related symptoms will continue to improve with supportive treatment. We discussed CT imaging which reveals an increase in size of his pulmonary nodules, this may be secondary to malignancy (i.e. progression of soft palate carcinoma) or a reactive process. Patient and patients daughter wish to keep his appointment for PET scan end of this month along with his follow up with Dr. Ponce/Dr. Blue. We will call [facility] with these appointments. Patient is interested in pursuing treatment options which could include systemic therapy/immunotherapy, if further imaging confirms malignancy. We will cancel his CT chest (he had CTA inpatient) scheduled for this week but keep CT soft tissue neck. Assessment of the oral cavity appears to have slightly improved over the weekend following a 3 day course of diflucan. Encouraged oral care as well as baking soda rinses. He will follow up with Dr. Blue next week, for further assessment and CT review (2) Moderate protein-calorie malnutrition Status: Acute Assessment and plan: Admitted with increased weakness, dehydration, falls at home, odynophagia He is receiving bolus feeds with high calorie meal replacements through PEG tube Continue PT/OT and nutritional support Appreciate the assistance of hospitalist team as well as therapy support services Plan to d/c to [facility] for rehab Oncology: Subj Interval history: no acute events noted over weekend. Sitting up in bed with daughter at bedside. Pain controlled. He had miralax added today for constipation. Denies nausea, vomiting, diarrhea, chest pain, SOB, H/A, gait or visual changes. Weakness improving. Continues to experience pain/odynophagia to oral cavity - Constitutional Vitals: Vital Signs Temp Pulse Resp BP Pulse Ox 11/05/18 11:06 18 97 01/27/18 10:43 98.5 F 62 18 127/62 96 01/27/18 09:07 96 01/27/18 08:19 18 96 01/27/18 06:58 98.8 F 66 18 122/66 95 01/27/18 04:29 17 89 01/27/18 03:11 97.8 F 67 17 118/59 93 01/26/18 23:59 16 96 01/26/18 20:58 16 97 01/26/18 20:25 97.9 F 63 18 151/65 97 01/26/18 16:02 98.2 F 68 18 129/68 96 Intake and Output 01/27/18 01/27/18 01/27/18 07:59 15:59 23:59 Intake Total 445 / 445 80 / 80 Output Total 525 / 525 850 / 850 Balance -80 / -80 -770 / -770 Intake: Oral 0 / 0 Tube Feeding 225 / 225 Free Water 160 / 160 Free Water Intake Amount 60 / 60 80 / 80 Output: Urine 525 / 525 850 / 850 Other: Meal Breakfast Percent of Meal Consumed 0% # Voids 1 1 General appearance: cooperative, no acute distress, thin, no febrile - Head Head exam: Present: atraumatic - ENT ENT exam: Present: mucous membranes dry Additional comments: edentulous, thick brown coating to tongue and roof of mouth, foul odor noted - Respiratory Respiratory exam: Present: decreased breath sounds. Absent: respiratory distress - Cardiovascular Cardiovascular exam: Present: RRR, +S1, +S2 - GI/Abdominal GI/Abdominal exam: Present: normal bowel sounds, soft. Absent: tenderness - Extremities Exam Extremities exam: Present: normal inspection. Absent: calf tenderness - Neurological Exam Neurological exam: Present: alert, oriented X3, no focal deficits, strengths equal and symetr throughout - Psychiatric Psychiatric exam: Present: normal affect, normal mood - Skin Skin exam: Present: dry, intact, normal color, warm Oncology: Obj Data - Labs CBC & Chem 7: 01/26/18 03:24 01/26/18 03:24 - ABG Interpretation ABG results: PT/INR, D-dimer PT 12.5 Seconds (9.4-12.1) H 01/22/18 20:26 Consult Discharge Plan - Plan [facility]errals: [facility] [Primary Care Provider] - Prescriptions: RX: OxyCODONE Immed Rel [Roxicodone 5 MG] 10 mg PO Q4HR PRN 7 Days #30 tablet PRN Reason: SEVERE PAIN RX: Gabapentin [Neurontin] 100 mg PO TID 30 Days #90 capsule <Mateusz,Jm S - Last Filed: 01/29/18 08:28> Date of Encounter: 01/27/18 Oncology: Obj Data - Labs CBC & Chem 7: 01/26/18 03:24 01/26/18 03:24 - ABG Interpretation ABG results: PT/INR, D-dimer PT 12.5 Seconds (9.4-12.1) H 01/22/18 20:26 Inpatient Charges Provider: Dr. Sweetie Child Follow up - Inpatient: [id number] - Attending Attestation I examined this patient and my medical decision-making was reviewed with the Advanced Practice Nurse. I agree with the documented findings, disposition and treatment plan as described except to the extent set forth below. 1. Soft palate cancer post radiation. Radiation was completed 11/26/2017. She had prolonged recovery from radiation-related toxicity. Mucositis is improving. He has nonspecific lung nodules. He has a follow-up with Dr. Ponce as an o utpatient to follow-up on this
[2018-01-27 16:07] VITALS: BP 122/64
== END 2018-01-27 17:07 | DRG 146 ==
LOC: 3BNU → 2ANU 01-26 18:12
PROVIDERS: ADMIT Internal Medicine; ATTEND Internal Medicine